=== PATIENT | female | born 1940 | race Caucasian/White ===

== ENCOUNTER 2023-04-29 07:09 | Inpatient (IN) ==
--- NOTE | 2023-04-22 15:51 | Anesthesiology Consultation ---
Date of Service April 22, 2023 Assessment & Plan (1) Encounter for pre-operative examination: - Infectious disease screening: Per assessment on 04/21/23: No known infectious disease contacts or current infectious disease symptoms. No noted Covid positive test result in past 90 days. - Cardiology note (04/08/23): "Scheduled for L4 and L5 decompression infusion [sic]. We will await repeat echo prior to clearance due to mildly reduced EF on stress testing." Subsequent echo performed 04/13/2023 with improved EF of 60- 65%. Her follow-up cardiology note (04/13/23): ' I have personally interpreted the result note of your echo.. Normal measurements of the aorta.. Strong heart muscle.. Normal heart chamber measurements.. No significant heart valve issues" - PCP visit (04/15/23): "preoperative testing reviewed including EKG and labs. She is for upcoming lumbar fusion.. There were no major concerns from the lab/EKG perspective.. She has had full cardiac work-up in the last year as well including recent echo which was reassuring.. By Vo criteria she should be considered moderate risk for lumbar spine surgery with 1-5% risk of perioperative ASCE/MACE" Chart Review Chart Review: Acceptable Risk for Surgery and Patient NOT seen in Pre Admission Testing History Surgery Operation Date: 04/29/23 09:05 Proposed Procedures p L4-S1 Decompression and Fusion - Sebastian Henley DO Height/Weight Height: 5 ft 2 in Weight: 72.575 kg Allergies Allergy/AdvReac Type Severity Reaction Status Date / Time aspirin Allergy "all over Verified 04/21/23 07:30 aching in the intestinal tract" NSAIDS (Non-Steroidal Allergy "all over Verified 04/21/23 07:30 Anti-Inflamma aching in the intestinal tract" empagliflozin AdvReac Yeast Verified 04/22/23 15:50 [From Jardiance] infections (per records) Medications Home Medications Medication Instructions Recorded Confirmed Last Taken lxuiyhgttw-kanvftksjqvhp-vlkrwadd 1 tab PO Q4H PRN migraines 04/21/23 04/21/23 Unknown 50 mg-325 mg-40 mg tablet ezetimibe 10 mg tablet 10 mg PO QAM 04/21/23 04/21/23 Unknown furosemide 40 mg tablet 40 mg PO QAM 04/21/23 04/21/23 Unknown metoprolol succinate 50 mg 50 mg PO QAM 04/21/23 04/21/23 Unknown tablet,extended release 24 hr pantoprazole 40 mg tablet,delayed 40 mg PO QAM 04/21/23 04/21/23 Unknown release potassium chloride 20 mEq 20 meq PO QAM 04/21/23 04/21/23 Unknown tablet,extended release prednisone 2 mg tablet,delayed 4 mg PO QAM PMR 04/21/23 04/21/23 Unknown release sumatriptan succinate 50 mg tablet 25 mg PO UD PRN migraines 04/21/23 04/21/23 Unknown (Imitrex) valsartan 40 mg tablet 40 mg PO BID 04/21/23 04/21/23 Unknown Past Medical History Medical History GERD (gastroesophageal reflux disease) History of asthma History of recent fall 04/09/23 (mechanical fall after losing balance)- No head trauma or loss of consciousness. Residual bruising related to this improving (left knee region). Subsequent cardio + PCP clearances obtained- PCP monitoring residual knee pain felt to be ligament injury per patient Currently using a walker "due to being stiff and sore" Hx of congestive heart failure Follows with Dr. Bettencourt Hx of migraines Hyperlipidemia Hypertension PMR (polymyalgia rheumatica) Schatzki's ring of distal esophagus Past Surgical History Surgical History History of bladder surgery tacking x2 History of esophagogastroduodenoscopy (EGD) Hx of cardiac cath 4+ years ago ([facility])- no stents Hx of colonoscopy Hx of sinus surgery x2 Hx of total hysterectomy with removal of both tubes and ovaries Slow to wake up after anesthesia Social History Smoking Status: Former smoker Do You Dip or Chew Tobacco: No Smoking End Date: years ago as a teenager until age 42, only 1-2/day Hx Alcohol Use: No Hx Substance Use: No substance use type: does not use Lab Results Anesthesia Preop Results Results Anesthesia Widget: WBC 8.32 K/ul (4.8-10.8) 04/01/23 Hgb 13.3 g/dl (12.0-16.0) 04/01/23 Hct 40.4 % (37.0-47.0) 04/01/23 Plt 310 K/uL (130-400) 04/01/23 Na 138 mmol/L (136-145) 04/01/23 K 4.2 mmol/L (3.5-5.1) 04/01/23 Cl 102 mmol/L (98-107) 04/01/23 CO2 28 mmol/L (21-32) 04/01/23 BUN 24 mg/dl (6-23) H 04/01/23 Creat 1.25 mg/dl (0.6-1.2) H 04/01/23 Glucose Level 108 mg/dl (70-99(Fasting)) H 04/01/23 PT 10.2 Seconds (9.0-12.0) 04/01/23 PTT 26.4 Seconds (21.0-31.0) 04/01/23 INR 0.9 (0.9-1.1) 04/01/23 Urine Color Yellow 04/01/23 Urine Appearance Clear (Clear) 04/01/23 Urine pH 5.0 (4.5-7.5) 04/01/23 Urine Specific [place] 1.035 (1.000-1.030) H 04/01/23 Urine Protein Trace (Negative) H 04/01/23 Urine Glucose (UA) Negative (Negative) 04/01/23 Urine Ketones Negative (Negative) 04/01/23 Urine Blood Negative (Negative) 04/01/23 Urine Nitrite Positive (Negative) A 04/01/23 Urine Bilirubin Negative (Negative) 04/01/23 Urine Urobilinogen Negative (Negative) 04/01/23 Urine Leukocyte Esterase Trace (Negative) H 04/01/23 Urine WBC (Auto) 10-30 /hpf (0-5) H 04/01/23 Urine RBC (Auto) 0-4 /hpf (0-4) 04/01/23 Urine Hyaline Casts (Auto) 1-5 /lpf (0-5) 04/01/23 Urine Epithelial Cells (Auto) >30 /lpf (0-5) H 04/01/23 Urine Bacteria (Auto) 4+ (Negative) H 04/01/23 Blood Type A Positive 04/01/23 Antibody Screen NEGATIVE 04/01/23 Testing Laboratory Results Urine culture (04/01/23)- e.coli (surgeon ordered preop testing) Electrocardiogram Date: 04/01/23 NSR at 78bpm. LAD. Minimal voltage criteria for LVH, may be normal variant. PRWP, consider anterior MS vs lead placement vs LVH. NS TWA. Echo performed 04/13/23* Chest X-Ray Date: 04/01/23 FINDINGS: Lung volumes are normal. Lungs are clear. There is no pneumothorax or pleural effusion. There is mild cardiomegaly. Mediastinal contours are normal. There is no evidence for pulmonary edema. IMPRESSION: No acute cardiopulmonary findings. Mild cardiomegaly. Echocardiogram Date: 04/13/23 LVEF 60-65%. Thickened aortic valve with mild AR. Thickened mitral valve with mild MR. Grade 1 diastolic dysfunction. Stress Test Date: 10/28/22 Type: nuclear No significant ischemia or infarction. Left ventricular systolic dysfunction noted with rest EF 42%, post-rest EF 40%. Mildly dilated LV cavity. Cardiac Catheterization Date: 05/01/20 Mild to moderate mid LAD artery stenosis. Normal LV systolic function. Recommendations: Medical therapy and aggressive risk factor modification.
[~2023-04-29 07:09] MED LIST: ACETAMINOPHEN 500 MG TAB PO SCH; CeleBREX 200 MG CAP PO SCH; GABAPENTIN 300 MG CAP PO SCH; LR 15ML/HR IV SCH; LR 60ML/HR IV SCH; ceFAZolin 2000MG 2,000 MG/15 ML SYR IV SCH
[2023-04-29] MEDS ORDERED: DEXAMETHASONE SOD INJ 4 MG/ML VIAL ONE (08:13)
[2023-04-29] MEDS ORDERED: fentaNYL citrate PF 100 MCG/2 ML VIAL ONE ×2 (08:13→10:01)
[2023-04-29] MEDS ORDERED: ROCURONIUM BROMIDE 10 MG/ML 5 ML VIAL IV ONE (08:13)
[2023-04-29] MEDS ORDERED: LIDOCAINE 2% 2 ML VIAL/AMP(20MG/ML) INFIL ONE (08:13)
[2023-04-29] MEDS ORDERED: PROPOFOL IV EMULSION 10 MG/ML 20 ML VIAL IV ONE (08:13)
[2023-04-29] MEDS ORDERED: ONDANSETRON INJ 2 MG/ML 2 ML VIAL ONE (08:13)
[2023-04-29] MEDS ORDERED: SUGAMMADEX SODIUM 200 MG/2 ML VIAL IV ONE (08:14)
--- NOTE | 2023-04-29 09:00 | History & Physical Bridge Note ---
Date of Service April 29, 2023 History & Physical Bridge Note I have examined the patient, reviewed the History & Physical and in the interval since the performance of the History & Physical I have noted the following changes of clinical significance: no changes noted
[2023-04-29] MEDS ORDERED: ONDANSETRON INJ 2 MG/ML 2 ML VIAL IV PRN ×2 (09:01→14:57)
[2023-04-29] MEDS ORDERED: ePHEDrine sulfate 50 MG/ML AMP IV PRN (09:01)
[2023-04-29] MEDS ORDERED: ATROPINE SULFATE 0.1 MG/ML 10ML SYR IV PRN (09:01)
--- NOTE | 2023-04-29 09:01 | History & Physical Report ---
Date of Service April 29, 2023 Assessment & Plan (1) Neurogenic claudication due to lumbar spinal stenosis: Plan: L4-S1 decompression and fusion History of Present Illness Chief Complaint: Back and leg pain Primary Care Provider: Yamil Griffin This is an 83-year-old female who presents with chronic persistent back and leg pain and failing since course of nonoperative care she is here for surgical invention. Allergies Allergy/AdvReac Type Severity Reaction Status Date / Time aspirin Allergy "all over Verified 04/29/23 07:38 aching in the intestinal tract" NSAIDS (Non-Steroidal Allergy "all over Verified 04/29/23 07:38 Anti-Inflamma aching in the intestinal tract" empagliflozin AdvReac Yeast Verified 04/29/23 07:38 [From Jardiance] infections (per records) Home Medications Medication Instructions Recorded Confirmed Type bsayilibrd-rxhhapnxhrhsj-ccsysezj 1 tab PO Q4H PRN migraines 04/21/23 04/29/23 History 50 mg-325 mg-40 mg tablet ezetimibe 10 mg tablet 10 mg PO QAM 04/21/23 04/29/23 History furosemide 40 mg tablet 40 mg PO QAM 04/21/23 04/29/23 History metoprolol succinate 50 mg 50 mg PO QAM 04/21/23 04/29/23 History tablet,extended release 24 hr pantoprazole 40 mg tablet,delayed 40 mg PO QAM 04/21/23 04/29/23 History release potassium chloride 20 mEq 20 meq PO QAM 04/21/23 04/29/23 History tablet,extended release prednisone 2 mg tablet,delayed 4 mg PO QAM PMR 04/21/23 04/29/23 History release sumatriptan succinate 50 mg tablet 25 mg PO UD PRN migraines 04/21/23 04/29/23 History (Imitrex) valsartan 40 mg tablet 40 mg PO BID 04/21/23 04/29/23 History Past Med/Surg History Medical History GERD (gastroesophageal reflux disease) History of asthma History of recent fall 04/09/23 (mechanical fall after losing balance)- No head trauma or loss of consciousness. Residual bruising related to this improving (left knee region). Subsequent cardio + PCP clearances obtained- PCP monitoring residual knee pain felt to be ligament injury per patient Currently using a walker "due to being stiff and sore" Hx of congestive heart failure Follows with Dr. Bettencourt Hx of migraines Hyperlipidemia Hypertension PMR (polymyalgia rheumatica) Schatzki's ring of distal esophagus Surgical History History of bladder surgery tacking x2 History of esophagogastroduodenoscopy (EGD) Hx of cardiac cath 4+ years ago ([facility])- no stents Hx of colonoscopy Hx of sinus surgery x2 Hx of total hysterectomy with removal of both tubes and ovaries Slow to wake up after anesthesia Social History Smoking Status: Former smoker Smoking End Date: years ago as a teenager until age 42, only 1-2/day; Second Hand Exposure: Yes (hx); Do You Dip or Chew Tobacco: No; Tobacco Cessation Education Requested by Patient: No Hx Alcohol Use: No Hx Substance Use: No Preferred Language: Italian Communication Ability: Effective Clinic Business Manager Required: No Beliefs That Will Affect Care: None Current Living Situation: Alone Other Information That Helps Us Care for You: No Feels Safe at Home: Yes Safety Concerns: Feels Safe At This Time Assistive Devices: Glasses, Hearing Aid - Bilateral and Walker Assistive Devices Comment: reading glasses prn Physical Exam Physical Exam: Patient is alert and oriented Heart rhythm Lungs clear Results & Data Results & Data Vital Signs (Past 12 Hours) Vital Signs Temp Pulse Resp BP Pulse Ox O2 Del Method 04/29/23 08:05 36.7 C 79 18 139/79 94 Room Air
[2023-04-29] MEDS ORDERED: BUPIVACAINE/EPINEPHRINE 0.25% 1:200,000 30 ML VIAL ONE (09:09)
[2023-04-29] MEDS ORDERED: ceFAZolin 330 MG/ML 1 GM VIAL ONE (09:09)
[2023-04-29] MEDS ORDERED: FLOSEAL HEMOSTATIC MATRIX 10ML TOP ONE (10:16)
--- NOTE | 2023-04-29 11:33 | Operative Report ---
Post Operative Report Pre & Post Diagnosis Operation Date: 04/29/23 09:05 Pre-Op Diagnosis: Neurogenic claudication due to lumbar spinal stenosis Spondylolisthesis L4-L5 Post-Op Diagnosis: Same I identified the patient and participated in the time-out.: Yes Procedure Operation Date: 04/29/23 09:05 Actual Procedures #1 lumbar decompression bilaterally facetectomies and foraminotomies L3-L4 L4-5 L5-S1. #2 posterior spinal fusion L4-5 L5-S1. #3 placement posterior instrumentation L4-S1. #4 interbody fusion L4-5 L5-S1. #5 placement of Spira 12 x 26 mm at L4-5 and 12 x 26 mm x 2 at L5-S1. #6 placement locally harvested morselized autograft and posterior gutters. #7 placement of I factor interbody space and infuse collagen sponge in the posterior lateral gutters. Surgeon Sebastian Henley DO Appliance Worker Kimberly Villalba Estimated Blood Loss 100 Findings Consistent with Post-Op Diagnosis Specimens None Indications This is an 83-year-old female who presents above-mentioned diagnosis after failed course of nonoperative care she is here for surgical invention. Description of Procedure Patient met with identified informed consent obtained. Patient was then taken to the operative suite underwent ablation placed in a prone position on the Saran table on top of the Babak frame. All bony promises well-padded eyes inspected to ensure no external precipice spinal. This point the lumbar spine was prepped and draped no sterile fashion. Sharp dissection with the assistance of Bovie cautery form down to and exposing the lamina and transverse processes of L for L5 and the sacral ala bilaterally. From caudal to cephalad fashion complete and active L4-5 L4 partial laminectomy of L3 was performed including bilaterally facetectomies and foraminotomies addressing severe spinal stenosis. Pedicle screw was then placed in L4-L5 and S1 levels bilaterally with assistance of fluoroscopy and the properly sized jh placed. By way of transforaminal approach and left discectomy of L5-S1 was performed endplates guarded to subcortical bleeding bone and a 12 x 26 mm Spira cage with I factor tapped in position. Then proceeded to the right transforaminal region completed discectomy curetted the endplates to subcortical mean bone and placed a second 12 x 26 mm Spira cage into the disc space. I then proceeded to L4-L5 and again by way of transfer approach left complete discectomy performed endplates guarded to subcortical and bone and a 12 x 22 mm Spira cage with I factor tapped in position. The rods were then compressed locked in final position bilaterally. The transverse processes of L4-5 and sacral ala burred to subcortical bone. Infuse collagen sponge and locally harvested morselized autograft placed in posterior gutters. 10 round of drain inserted. Incision was then closed with 1 Vicryl and fascia 2-0 Vicryl subcutaneously and 4 Monocryl for final skin closure. Steri-Strips sterile dressings placed. Patient waken taken to PACU stable condition. Please note spinal cord monitoring was utilized at the procedure no changes noted. Lastly Kimberly Villalba is present at the entire surgeon while the patient positioning complex course of the surgery and final skin closure. I attest to the content of the Intraoperative Record and any orders documented therein. Any exceptions are noted below.
[2023-04-29] MEDS: fentaNYL citrate PF 100 MCG/2 ML VIAL IV PRN ×4 (11:50→12:05)
--- NOTE | 2023-04-29 13:53 | Anesthesiology Progress Note ---
Date of Service April 29, 2023 Anesthesia Post Procedure Vital Signs Vital Signs: Temp Pulse Pulse Resp BP Pulse Ox O2 Del Method 04/29/23 13:45 75 19 123/69 96 Nasal Cannula 04/29/23 13:15 72 16 146/71 H 94 Nasal Cannula 04/29/23 13:30 76 12 130/74 96 Nasal Cannula 04/29/23 13:00 75 14 148/70 H 95 Nasal Cannula 04/29/23 12:50 75 12 151/74 H 96 Nasal Cannula 04/29/23 12:40 76 22 141/58 H 96 Nasal Cannula 04/29/23 12:30 70 16 140/63 95 Nasal Cannula 04/29/23 12:20 97.5 F L 76 16 134/78 96 Nasal Cannula 04/29/23 12:10 78 14 143/88 H 92 Room Air 04/29/23 12:00 74 17 157/77 H 96 Oxymask 04/29/23 11:50 72 20 160/80 H 99 Oxymask 04/29/23 11:43 97.2 F L 78 16 160/66 H 99 Oxymask 04/29/23 08:05 98.1 F 79 18 139/79 94 Room Air O2 Flow Rate 04/29/23 13:45 3 04/29/23 13:15 3 04/29/23 13:30 3 04/29/23 13:00 3 04/29/23 12:50 3 04/29/23 12:40 3 04/29/23 12:30 3 04/29/23 12:20 3 04/29/23 12:10 04/29/23 12:00 4 04/29/23 11:50 6 04/29/23 11:43 6 04/29/23 08:05 Pain Intensity Back: Pain Intensity: 3 Transfer of Care Handoff Completed per policy Notes Mental Status: alert / awake / arousable and participated in evaluation Patient Amnestic to Procedure: Yes Nausea / Vomiting: adequately controlled Pain: adequately controlled Airway Patency, RR, SpO2: stable & adequate BP & HR: stable & adequate Hydration State: stable & adequate Anesthetic Complications: no major complications apparent and Pt Satisfied with anesthetic care
--- NOTE | 2023-04-29 14:17 | Fluoroscopy Report ---
FL lumbar spine 2-3V CLINICAL HISTORY: L4-S1 DECOMP AND FUSION COMPARISON STUDY: None. FLUOROSCOPY TIME: 25 seconds. Ka, r: 23.07 mGy FLUOROSCOPIC IMAGES: 2 FINDINGS: Fluoroscopy was provided during L4-L5 and L5-S1 discectomies. Posterior decompression is no wanda with bilateral pedicle screws at the L4, L5 and S1 levels. Hardware is intact. There are intercon necting rods. IMPRESSION: Fluoroscopy provided during L4-S1 posterior decompression, fusion and discectomy. ACT 112: Negative or not required by law. Electronically signed by: Marques Mart M.D. 04/29/2023 2:15 PM
[2023-04-29] MEDS ORDERED: METOCLOPRAMIDE HCL INJ 5 MG/ML 2 ML VIAL IV PRN (14:57)
[2023-04-29] MEDS ORDERED: DO NOT ADMINISTER FLU VACCINE PRN (14:57)
[2023-04-29] MEDS ORDERED: LORazepam 0.5 MG TAB PO PRN (14:57)
[2023-04-29] MEDS ORDERED: ALUMINUM/MAGNESIUM SUSP 30 ML UDC PO PRN (14:57)
[2023-04-29] MEDS ORDERED: DO NOT ADMINISTER PNEUMOCOCCAL VACCINE PRN (14:57)
[2023-04-29] MEDS ORDERED: BUTALBITAL/ACETAMIN/CAFFEINE TAB PO PRN (14:57)
[2023-04-29] MEDS ORDERED: SOD PHOSPHATE/SOD BIPHOSPHATE ENEMA 132 ML BTL PR PRN (14:57)
[2023-04-29] MEDS ORDERED: ONDANSETRON 4 MG OD TAB PO PRN (14:57)
[2023-04-29] MEDS ORDERED: PROMETHAZINE HCL 12.5 MG in SODIUM CHLORIDE 0.9% 50 ML IV PRN (14:57)
[2023-04-29] MEDS ORDERED: diphenhydrAMINE Capsule 25 MG CAP PO PRN (14:57)
[2023-04-29] MEDS ORDERED: LORazepam 2 MG/1 ML VIAL IV PRN (14:57)
[2023-04-29] MEDS ORDERED: bisacodyL 10 MG SUPP PR PRN (14:57)
[2023-04-29] MEDS ORDERED: hydrOXYzine HCl 25 MG TAB PO PRN (14:57)
[2023-04-29] MEDS ORDERED: NALOXONE HCL 0.4 MG/1 ML VIAL/CARP IV PRN (14:57)
[2023-04-29] MEDS ORDERED: SUMAtriptan succinate 25 MG TAB PO PRN (14:57)
[2023-04-29] MEDS ORDERED: HYDROmorphone INJ 0.5 MG/0.5 ML SYR IV PRN (14:57)
[2023-04-29] MEDS ORDERED: MAGNESIUM HYDROXIDE SUSP 30 ML UDC PO PRN (14:57)
[2023-04-29] MEDS ORDERED: HYDROmorphone INJ 1 MG/ML SYRINGE IV PRN (14:57)
[2023-04-29] MEDS ORDERED: FAMOTIDINE 20 MG TAB PO PRN (14:57)
[2023-04-29] MEDS ORDERED: ACETAMINOPHEN 1,000 MG/100 ML VIAL IV PRN (14:57)
[2023-04-29] MEDS: LACTATED RINGER'S 1,000 ML IV SCH ×2 (15:30→22:47)
--- NOTE | 2023-04-29 16:11 | Hospitalist Consultation ---
Date of Consultation April 29, 2023 Assessment & Plan (1) Neurogenic claudication due to lumbar spinal stenosis: S/p L4-S1 Decompression and Fusion, Spinal Cord Monitoring today Pain control Defer Activity to Primary Surgeon PT/OT Plan to remove harmon by tomorrow Check CBC and BMP in the morning (2) CHF (congestive heart failure): (3) Hypertension: Daughter reported that she had hypotension with her antihypertensives and opioids in the past after surgery BP was elevated earlier but has been normal since Nursing communication order to check BP prior to giving any antihypertensives Otherwise continue home valsartan, metoprolol Resume home lasix and potassium tomorrow Updated daughters who were at bedside I spent a total of 55 minutes coordinating, documenting and providing care for this patient excluding time spent in performance of separately billed services History of Present Illness Reason for Consultation: Post op medical management Requesting Physician: Sebastian Henley DO Attending Physician: Sebastian Henley DO History of Present Illness 83-year-old woman with history of hypertension, congestive heart disease who had lung postsacral decompression and fusion surgery today. Patient has been having neurogenic stenosis with lumbar radiculopathy for some years, worsened over the past 2 years. Reports pain radiating to the legs, usually alternates between left and right and weakness in legs Reports ambulatory dysfunction due to this. Had a fall in the past few weeks Had L4-S1 Decompression and Fusion, Spinal Cord Monitoring by Dr Henley this morning Currently reports feeling a bit 'loopy' after getting some pain med. Otherwise, she denied any other complaints. Denied smoking, drinking or use of illicit drugs Father had a cardiac event in his 70s Allergies Allergy/AdvReac Type Severity Reaction Status Date / Time aspirin Allergy "all over Verified 04/29/23 07:38 aching in the intestinal tract" NSAIDS (Non-Steroidal Allergy "all over Verified 04/29/23 07:38 Anti-Inflamma aching in the intestinal tract" empagliflozin AdvReac Yeast Verified 04/29/23 07:38 [From Jardiance] infections (per records) Home Medications Medication Instructions Recorded Confirmed Type gfysgolomf-gkwrmnguedpzk-tkxzobrg 1 tab PO Q4H PRN migraines 04/21/23 04/29/23 History 50 mg-325 mg-40 mg tablet ezetimibe 10 mg tablet 10 mg PO QAM 04/21/23 04/29/23 History furosemide 40 mg tablet 40 mg PO QAM 04/21/23 04/29/23 History metoprolol succinate 50 mg 50 mg PO QAM 04/21/23 04/29/23 History tablet,extended release 24 hr pantoprazole 40 mg tablet,delayed 40 mg PO QAM 04/21/23 04/29/23 History release potassium chloride 20 mEq 20 meq PO QAM 04/21/23 04/29/23 History tablet,extended release prednisone 2 mg tablet,delayed 4 mg PO QAM PMR 04/21/23 04/29/23 History release sumatriptan succinate 50 mg tablet 25 mg PO UD PRN migraines 04/21/23 04/29/23 History (Imitrex) valsartan 40 mg tablet 40 mg PO BID 04/21/23 04/29/23 History Patient History Medical History (Updated 04/29/23 @ 16:18 by Kassandra Rodgers MD) GERD (gastroesophageal reflux disease) History of asthma History of recent fall 04/09/23 (mechanical fall after losing balance)- No head trauma or loss of consciousness. Residual bruising related to this improving (left knee region). Subsequent cardio + PCP clearances obtained- PCP monitoring residual knee pain felt to be ligament injury per patient Currently using a walker "due to being stiff and sore" Hx of congestive heart failure Follows with Dr. Bettencourt Hx of migraines Hyperlipidemia Hypertension PMR (polymyalgia rheumatica) Schatzki's ring of distal esophagus Surgical History History of bladder surgery tacking x2 History of esophagogastroduodenoscopy (EGD) Hx of cardiac cath 4+ years ago ([facility] no stents Hx of colonoscopy Hx of sinus surgery x2 Hx of total hysterectomy with removal of both tubes and ovaries Slow to wake up after anesthesia Social History Smoking Status: Former smoker Smoking End Date: years ago as a teenager until age 42, only 1-2/day; Second Hand Exposure: Yes (hx); Do You Dip or Chew Tobacco: No; Tobacco Cessation Education Requested by Patient: No Hx Alcohol Use: No Hx Substance Use: No Preferred Language: [place] African Communication Ability: Effective Sewing Machinist Required: No Beliefs That Will Affect Care: None Current Living Situation: Alone Other Information That Helps Us Care for You: No Feels Safe at Home: Yes Safety Concerns: Feels Safe At This Time Assistive Devices: Glasses, Hearing Aid - Bilateral and Walker Assistive Devices Comment: reading glasses prn Review of Systems Review of Systems: All systems reviewed & are unremarkable except as noted in HPI & below Physical Exam Constitutional: + well hydrated; no acute distress Eyes: PERRL, conjunctivae normal, anicteric sclerae ENMT: external ear and nose normal, oropharynx normal Respiratory: normal respiratory effort, lungs clear to auscultation Cardiovascular: Rate/Rhythm: regular rate and regular rhythm S1 S2 Gastrointestinal (Abdomen): normal bowel sounds, soft, nontender, no hepatosplenomegaly Musculoskeletal: No pedal edema Drain in situ in surgical site Neurologic: PERRL, EOMI, accommodation nl, no face palsy, no dysarthria Psychiatric: A+Ox3, euthymic affect Genitourinary: Harmon in situ Results & Data Results & Data Vital Signs (Past 12 Hours) Vital Signs Temp Pulse Pulse Resp BP BP Pulse Ox 04/29/23 15:30 36.9 C 72 18 129/82 98 04/29/23 15:00 36.7 C 76 20 130/70 94 04/29/23 14:30 77 16 126/69 97 04/29/23 14:00 76 18 133/63 95 04/29/23 13:45 75 19 123/69 96 04/29/23 13:15 72 16 146/71 H 94 04/29/23 13:30 76 12 130/74 96 04/29/23 13:00 75 14 148/70 H 95 04/29/23 12:50 75 12 151/74 H 96 04/29/23 12:40 76 22 141/58 H 96 04/29/23 12:30 70 16 140/63 95 04/29/23 12:20 36.4 C L 76 16 134/78 96 04/29/23 12:10 78 14 143/88 H 92 04/29/23 12:00 74 17 157/77 H 96 04/29/23 11:50 72 20 160/80 H 99 04/29/23 11:43 36.2 C L 78 16 160/66 H 99 04/29/23 08:05 36.7 C 79 18 139/79 94 O2 Del Method O2 Flow Rate 04/29/23 15:30 Nasal Cannula 2 04/29/23 15:00 Nasal Cannula 2 04/29/23 14:30 Nasal Cannula 3 04/29/23 14:00 Nasal Cannula 3 04/29/23 13:45 Nasal Cannula 3 04/29/23 13:15 Nasal Cannula 3 04/29/23 13:30 Nasal Cannula 3 04/29/23 13:00 Nasal Cannula 3 04/29/23 12:50 Nasal Cannula 3 04/29/23 12:40 Nasal Cannula 3 04/29/23 12:30 Nasal Cannula 3 04/29/23 12:20 Nasal Cannula 3 04/29/23 12:10 Room Air 04/29/23 12:00 Oxymask 4 04/29/23 11:50 Oxymask 6 04/29/23 11:43 Oxymask 6 04/29/23 08:05 Room Air Laboratory Results Abnormal lab results 04/29/23 Range/Units 07:27 Crossmatch See Detail
[2023-04-29] MEDS: ceFAZolin 2000MG 2,000 MG/15 ML SYR IV SCH (17:00)
[2023-04-29] MEDS: DOCUSATE SODIUM/SENNA 50/8.6MG TAB PO SCH (20:22)
[2023-04-29] MEDS: VALSARTAN 80 MG TAB PO SCH (20:23)
[2023-04-30] MEDS: ceFAZolin 2000MG 2,000 MG/15 ML SYR IV SCH (01:34)
[2023-04-30] MEDS: ACETAMINOPHEN 500 MG TAB PO PRN (02:44)
[2023-04-30] MEDS: POLYETHYLENE (MIRALAX) 17 GM PACK PO SCH ×3 (05:59→17:19)
[2023-04-30] MEDS: traMADol HCL 50 MG TABLET PO PRN ×3 (06:27→20:55)
[2023-04-30 06:58] LABS: Basophils # (auto) 0.02 K/uL (0.00-0.20); Basophils % (auto) 0.2 %; Hematocrit (blood only) 32.1 % (37.0-47.0); Hemoglobin 10.7 g/dl (12.0-16.0); Immature Granulocytes # (auto) 0.06 K/uL (0.01-0.20); Immature Granulocytes % (auto) 0.5 %; Lymphocytes # (auto) 0.68 K/uL (1.20-3.40); Lymphocytes % (auto) 5.2 %; Mean Corpuscular Hemoglobin 30.6 pg (25.0-34.0); Mean Corpuscular Hgb Conc 33.3 g/dL (32.0-36.0); Mean Corpuscular Volume 91.7 fL (80.0-100.0); Mean Platelet Volume 9.3 fL (9.4-12.4); Monocytes # (auto) 1.27 K/uL (0.11-0.59); Monocytes % (auto) 9.7 %; Neutrophils # (auto) 11.02 K/uL (1.40-6.50); Neutrophils % (auto) 84.4 %; Platelet Count 301 K/uL (130-400); RDW Coefficient of Variation 14.6 % (11.5-14.5); RDW Standard Deviation 49.5 fL (36.4-46.3); White Blood Count 13.05 K/ul (4.8-10.8)
[2023-04-30 07:18] LABS: BUN Creatinine Ratio 25.3 (10-20); Calcium 8.8 mg/dl (8.6-10.3); Creatinine Clr Calc Pharmacy 43.3 ml/min; Est GFR (African American) 65.1 ml/min; Est GFR (Non-African American) 56.2 ml/min; Potassium 4.5 mmol/L (3.5-5.1)
[2023-04-30] MEDS: PANTOprazole 40 MG TAB PO SCH (07:44)
[2023-04-30] MEDS: VALSARTAN 80 MG TAB PO SCH ×2 (07:44→20:56)
[2023-04-30] MEDS: EZETIMIBE 10 MG TAB PO SCH (07:44)
[2023-04-30] MEDS: dexAMETHasone 6 MG in SYRINGE 0 ML IV SCH (07:44)
[2023-04-30] MEDS: FUROSEMIDE 40 MG TAB PO SCH (07:52)
[2023-04-30] MEDS: METOPROLOL SUCC 50MG EXT REL TAB PO SCH (07:52)
[2023-04-30] MEDS: POTASSIUM CHLORIDE CRTAB 20 MEQ TABCR PO SCH (07:52)
--- NOTE | 2023-04-30 12:51 | Orthopedic Progress Note ---
Date of Service April 30, 2023 Assessment & Plan (1) Neurogenic claudication due to lumbar spinal stenosis: Plan: At this time we will continue physical therapy monitor YUVAL output hopefully discharge home later this weekend. Admission and Anticipated Discharge Date Admission Date: April 29, 2023 Subjective Back pain controlled leg pain improved Physical Exam Physical Exam: Patient is in bed. She is comfortable. Is constricted testing. Results & Data Vital Signs (Past 12 Hours) Vital Signs Temp Pulse Resp BP BP Pulse Ox O2 Del Method 04/30/23 11:00 65 18 118/72 04/30/23 07:20 Room Air 04/30/23 10:20 76 20 97/60 L 04/30/23 07:50 65 20 132/64 91 Room Air 04/30/23 06:33 36.8 C 78 16 132/65 96 Room Air 04/30/23 02:43 36.7 C 78 16 130/80 97 Room Air
--- NOTE | 2023-04-30 13:37 | Hospitalist Progress Note ---
Date of Service April 30, 2023 Assessment & Plan (1) Neurogenic claudication due to lumbar spinal stenosis: Plan: POD#1 s/p L4-S1 Decompression and Fusion, Spinal Cord Monitoring Per ortho for pain control, wound care, anticoagulation and activities Nicole to be removed today Post-op blood loss anemia Hg 10.7 (from pre-op 13.3) in setting of post-op blood loss, dilutional factors Asymptomatic during exam Continue to monitor CBC daily (2) CHF (congestive heart failure): Plan: Euvolemic. Continue home diuretics, potassium. IV fluids discontinued, low sodium diet (3) Hypertension: Plan: Chronic; stable. BP 118/72. Continue valsartan, metoprolol with hold parameters Thank you for this consultation. We will follow the patient with you during their hospital stay. You can reach a member of the [facility] Hospitalist Team 26/01 via [employer]. Admission and Anticipated Discharge Date Admission Date: April 29, 2023 Supervising Physician Co-Signing Physician Notes Attending addendum: The patient was seen and examined in medical floor She is a status post L4-S1 decompression and fusion Has been doing better Pain is minimal and has been getting PT and OT evaluation Denies any other significant symptoms On examination Sitting on a chair without any acute distress Hemodynamically stable Chest-clear to auscultate bilaterally Heart-S1, [id number] Abdomen-benign Extremities-trace edema bilaterally Her labs, medications and imaging studies reviewed Status post L4-S1 decompression fusion Remains medically stable Agree with assessment and plan as outlined above by MICHAEL Hull Dr Subjective Seen and examined in 310 in follow-up after back surgery. Patient is comfortable with minimal surgical site discomfort. Denies any pain or paresthesias in bilateral lower extremities. Had an episode this morning where she felt lightheaded and was noted to have BP of 92/70 following prolonged period of standing in front of the mirror in the bathroom. Discussed caution with position changes and postoperative setting as well as resting as needed after ambulation. Denies any issues with diet. No fever, chills, headache, chest pain, shortness of breath, nausea, vomiting, abdominal pain, dysuria. Endorsing postop flatus, no bowel movement. Review of Systems Review of Systems: At least ten systems reviewed and negative except as noted in the HPI. Physical Exam Physical Exam: Gen: WD/WN, NAD, sitting in bedside chair, A&Ox3 HEENT: Normocephalic, atraumatic, conjunctivae moist, sclerae anicteric, mucous membranes moist Lung: Clear to Auscultation bilaterally, no wheezes/rales/rhonchi Heart: Regular rate, regular rhythm, no murmurs, rubs, or gallops Abdomen: Soft, NT, ND +BS x 4 : + Nicole visualized Extremities: +Spinal dressing c/d/i, YUVAL with serosanguineous output. No edema Skin: Warm, no rash Results & Data Results & Data Vital Signs (Past 12 Hours) Vital Signs Temp Pulse Resp BP BP Pulse Ox O2 Del Method 04/30/23 11:00 65 18 118/72 04/30/23 07:20 Room Air 04/30/23 10:20 76 20 97/60 L 04/30/23 07:50 65 20 132/64 91 Room Air 04/30/23 06:33 36.8 C 78 16 132/65 96 Room Air 04/30/23 02:43 36.7 C 78 16 130/80 97 Room Air Laboratory Results Short CBC 04/30/23 Range/Units 06:09 WBC 13.05 H (4.8-10.8) K/ul Hgb 10.7 L (12.0-16.0) g/dl Hct 32.1 L (37.0-47.0) % Plt Count 301 (130-400) K/uL BMP 04/30/23 06:09 Sodium 141 Potassium 4.5 Chloride 106 Carbon Dioxide 27 BUN 24 H Creatinine 0.95 Glucose 106 H Calcium 8.8 Diagnostic Findings Lumbar Spine X-Ray 04/29/23 00:00 FL lumbar spine 2-3V CLINICAL HISTORY: L4-S1 DECOMP AND FUSION COMPARISON STUDY: None. FLUOROSCOPY TIME: 25 seconds. Ka, r: 23.07 mGy FLUOROSCOPIC IMAGES: 2 FINDINGS: Fluoroscopy was provided during L4-L5 and L5-S1 discectomies. Posterior decompression is noted with bilateral pedicle screws at the L4, L5 and S1 levels. Hardware is intact. There are interconnecting rods. IMPRESSION: Fluoroscopy provided during L4-S1 posterior decompression, fusion and discectomy. ACT 112: Negative or not required by law. Electronically signed by: Marques Mart M.D. 04/29/2023 2:15 PM
[2023-04-30] MEDS: predniSONE 1 MG TAB PO SCH (13:55)
[2023-04-30] MEDS: LACTATED RINGER'S 1,000 ML IV SCH (19:29)
[2023-04-30] MEDS: DOCUSATE SODIUM/SENNA 50/8.6MG TAB PO SCH (20:57)
[2023-05-01] MEDS: POLYETHYLENE (MIRALAX) 17 GM PACK PO SCH ×4 (00:25→18:40)
[2023-05-01] MEDS: traMADol HCL 50 MG TABLET PO PRN ×6 (02:03→20:07)
[2023-05-01] MEDS: FUROSEMIDE 40 MG TAB PO SCH (08:22)
[2023-05-01] MEDS: EZETIMIBE 10 MG TAB PO SCH (08:22)
[2023-05-01] MEDS: dexAMETHasone 6 MG in SYRINGE 0 ML IV SCH (08:22)
[2023-05-01] MEDS: METOPROLOL SUCC 50MG EXT REL TAB PO SCH (08:23)
[2023-05-01] MEDS: PANTOprazole 40 MG TAB PO SCH (08:23)
[2023-05-01] MEDS: POTASSIUM CHLORIDE CRTAB 20 MEQ TABCR PO SCH (08:23)
[2023-05-01] MEDS: predniSONE 1 MG TAB PO SCH (08:24)
[2023-05-01] MEDS: VALSARTAN 80 MG TAB PO SCH ×2 (08:24→20:08)
[2023-05-01 08:38] LABS: Hematocrit (blood only) 34.2 % (37.0-47.0); Mean Corpuscular Hemoglobin 30.2 pg (25.0-34.0); Mean Corpuscular Hgb Conc 32.2 g/dL (32.0-36.0); Mean Platelet Volume 9.4 fL (9.4-12.4); Platelet Count 305 K/uL (130-400); RDW Coefficient of Variation 14.7 % (11.5-14.5); Red Blood Count 3.64 M/uL (4.20-5.40); White Blood Count 15.15 K/ul (4.8-10.8)
[2023-05-01 08:53] LABS: BUN Creatinine Ratio 35.9 (10-20); Calcium 9.1 mg/dl (8.6-10.3); Creatinine Clr Calc Pharmacy 44.7 ml/min; Est GFR (African American) 67.7 ml/min; Est GFR (Non-African American) 58.4 ml/min; Potassium 4.7 mmol/L (3.5-5.1)
--- NOTE | 2023-05-01 12:07 | Hospitalist Progress Note ---
Date of Service May 01, 2023 Assessment & Plan (1) Neurogenic claudication due to lumbar spinal stenosis: Plan: POD#2 s/p L4-S1 Decompression and Fusion, Spinal Cord Monitoring Per ortho for pain control, wound care, anticoagulation and activities Post-op blood loss anemia Hgb stable at 11 (from 10.7 yesterday, pre-op 13.3) in setting of post-op blood loss, dilutional factors Asymptomatic during exam Continue to monitor CBC daily (2) CHF (congestive heart failure): Plan: Euvolemic. Continue home diuretics, potassium. IV fluids discontinued, low sodium diet (3) Hypertension: Plan: Chronic; stable. Continue valsartan, metoprolol Thank you for this consultation. We will follow the patient with you during their hospital stay. You can reach a member of the [facility] Hospitalist Team 26/01 via [employer]. Admission and Anticipated Discharge Date Admission Date: April 29, 2023 Supervising Physician Co-Signing Physician Notes 05/01/2023 The patient was seen and examined in medical floor She has been feeling better and the back pain is minimal Denies any other symptoms On examination Sitting on a chair without any acute distress Hemodynamically stable with blood pressure on the higher side at 168/77 Chest-clear to auscultate bilaterally Heart-S1-S2, regular Abdomen-benign Extremities-trace edema bilaterally Her labs and imaging studies reviewed. Medications reviewed She is a status post L4-S1 decompression fusion Remains stable medically Agree with assessment and plan as outlined above by MICHAEL Hull Dr Subjective Seen and examined in 310 in follow-up after back surgery. Experiencing more pain today at surgical site is currently resting in bed. Able to participate with therapy. Denies any other acute issues overnight. Tolerating diet, urinating without issue. No fever, chills, headache, chest pain, shortness of breath, nausea, vomiting, abdominal pain, dysuria. Endorsing postop flatus, no bowel movement yet. Review of Systems Review of Systems: At least ten systems reviewed and negative except as noted in the HPI. Physical Exam Physical Exam: Gen: WD/WN, NAD, sitting in bedside chair, A&Ox3 HEENT: Normocephalic, atraumatic, conjunctivae moist, sclerae anicteric, mucous membranes moist Lung: Clear to Auscultation bilaterally, no wheezes/rales/rhonchi Heart: Regular rate, regular rhythm, no murmurs, rubs, or gallops Abdomen: Soft, NT, ND +BS x 4 Extremities: +Spinal dressing c/d/i, YUVAL with serosanguineous output. No edema Skin: Warm, no rash Results & Data Results & Data Vital Signs (Past 12 Hours) Vital Signs Temp Pulse Pulse Resp BP Pulse Ox O2 Del Method 05/01/23 10:00 69 156/72 H 05/01/23 06:25 72 109/62 05/01/23 07:02 36.4 C L 67 18 113/65 95 Room Air Laboratory Results Short CBC 05/01/23 Range/Units 08:05 WBC 15.15 H (4.8-10.8) K/ul Hgb 11.0 L (12.0-16.0) g/dl Hct 34.2 L (37.0-47.0) % Plt Count 305 (130-400) K/uL BMP 05/01/23 08:05 Sodium 138 Potassium 4.7 Chloride 102 Carbon Dioxide 30 BUN 33 H Creatinine 0.92 Glucose 105 H Calcium 9.1 Diagnostic Findings Lumbar Spine X-Ray 04/29/23 00:00 FL lumbar spine 2-3V CLINICAL HISTORY: L4-S1 DECOMP AND FUSION COMPARISON STUDY: None. FLUOROSCOPY TIME: 25 seconds. Ka, r: 23.07 mGy FLUOROSCOPIC IMAGES: 2 FINDINGS: Fluoroscopy was provided during L4-L5 and L5-S1 discectomies. Posterior decompression is noted with bilateral pedicle screws at the L4, L5 and S1 levels. Hardware is intact. There are interconnecting rods. IMPRESSION: Fluoroscopy provided during L4-S1 posterior decompression, fusion and discectomy. ACT 112: Negative or not required by law. Electronically signed by: Marques Mart M.D. 04/29/2023 2:15 PM
--- NOTE | 2023-05-01 14:03 | Orthopedic Progress Note ---
Date of Service May 01, 2023 Assessment & Plan (1) Neurogenic claudication due to lumbar spinal stenosis: Plan: At this time we will continue physical therapy without the weekend and plan for transfer to [facility] on Thursday. Admission and Anticipated Discharge Date Admission Date: April 29, 2023 Subjective Back pain controlled leg pain improved Physical Exam Physical Exam: Patient is currently in bed. She is comfortable. Discussed when to testing. Results & Data Vital Signs (Past 12 Hours) Vital Signs Temp Pulse Pulse Resp BP Pulse Ox O2 Del Method 05/01/23 10:00 69 156/72 H 05/01/23 06:25 72 109/62 05/01/23 07:02 36.4 C L 67 18 113/65 95 Room Air
[2023-05-01] MEDS: DOCUSATE SODIUM/SENNA 50/8.6MG TAB PO SCH (20:09)
[2023-05-02] MEDS: traMADol HCL 50 MG TABLET PO PRN ×5 (00:15→22:38)
[2023-05-02] MEDS: POLYETHYLENE (MIRALAX) 17 GM PACK PO SCH ×3 (00:16→13:05)
[2023-05-02 06:21] LABS: Hemoglobin 10.1 g/dl (12.0-16.0); Mean Corpuscular Hemoglobin 30.6 pg (25.0-34.0); Mean Corpuscular Hgb Conc 33.7 g/dL (32.0-36.0); Mean Corpuscular Volume 90.9 fL (80.0-100.0); Mean Platelet Volume 9.7 fL (9.4-12.4); Platelet Count 275 K/uL (130-400); RDW Coefficient of Variation 14.6 % (11.5-14.5); RDW Standard Deviation 48.2 fL (36.4-46.3); White Blood Count 12.24 K/ul (4.8-10.8)
[2023-05-02 06:26] LABS: BUN Creatinine Ratio 41.9 (10-20); Calcium 8.7 mg/dl (8.6-10.3); Creatinine Clr Calc Pharmacy 47.9 ml/min; Est GFR (African American) 73.4 ml/min; Est GFR (Non-African American) 63.4 ml/min; Potassium 4.7 mmol/L (3.5-5.1)
[2023-05-02] MEDS: POTASSIUM CHLORIDE CRTAB 20 MEQ TABCR PO SCH (08:31)
[2023-05-02] MEDS: predniSONE 1 MG TAB PO SCH (08:31)
[2023-05-02] MEDS: FUROSEMIDE 40 MG TAB PO SCH (08:31)
[2023-05-02] MEDS: PANTOprazole 40 MG TAB PO SCH (08:31)
[2023-05-02] MEDS: METOPROLOL SUCC 50MG EXT REL TAB PO SCH (08:31)
[2023-05-02] MEDS: dexAMETHasone 6 MG in SYRINGE 0 ML IV SCH (08:31)
[2023-05-02] MEDS: EZETIMIBE 10 MG TAB PO SCH (08:32)
[2023-05-02] MEDS: VALSARTAN 80 MG TAB PO SCH ×2 (08:32→19:47)
--- NOTE | 2023-05-02 08:37 | Orthopedic Progress Note ---
Date of Service May 02, 2023 Assessment & Plan (1) Neurogenic claudication due to lumbar spinal stenosis: Plan: At this time we will continue physical therapy monitor YUVAL output anticipate discharge to rehab tomorrow. Admission and Anticipated Discharge Date Admission Date: April 29, 2023 Subjective Back pain controlled leg pain improved Physical Exam Physical Exam: Patient is in bed. She is comfortable. Is for strength testing. Results & Data Vital Signs (Past 12 Hours) Vital Signs Temp Pulse Pulse Resp BP BP Pulse Ox 05/02/23 07:13 36.8 C 75 16 120/74 96 05/01/23 22:49 36.5 C 70 18 134/84 93 O2 Del Method 05/02/23 07:13 Room Air 05/01/23 22:49 Room Air
--- NOTE | 2023-05-02 14:04 | Hospitalist Progress Note ---
Date of Service May 02, 2023 Assessment & Plan (1) Neurogenic claudication due to lumbar spinal stenosis: Plan: POD#3 s/p L4-S1 Decompression and Fusion, Spinal Cord Monitoring Per ortho for pain control, wound care, anticoagulation and activities Post-op blood loss anemia Hgb stable at 10.1 ( pre-op 13.3) in setting of post-op blood loss, dilutional factors Asymptomatic during exam Continue to monitor CBC daily (2) CHF (congestive heart failure): Plan: Euvolemic. Continue home diuretics, potassium. IV fluids discontinued, low sodium diet (3) Hypertension: Plan: Chronic; stable. Continue valsartan, metoprolol Knee Pain Per pt multiple images done outpt PRN pain control as ordered Consider ortho follow up for this as well Thank you for this consultation. We will follow the patient with you during their hospital stay. You can reach a member of the [facility] Hospitalist Team 26/01 via [employer]. Admission and Anticipated Discharge Date Admission Date: April 29, 2023 Subjective Pt seen in the AM. Noted that her left knee that was in a brace was painful. Later notified by nursing that pt wanted to report vasovagal episodes that were occurring at home as well. Gets hot and sweaty, per nuring BP elevated and glucose level wnl. Pt did note when seen that she had not yet had a BM in spite of miralax, milk of magnesia and was drinking a prune juice/apple juice drink to help. Review of Systems Review of Systems: All systems reviewed & are unremarkable except as noted in Subjective Physical Exam Physical Exam: General: Alert, oriented. No acute distress Skin: No noted rashes or bruises Psych: Appropriate mood and affect Neuro: No gross deficits HEENT: NC/AT Chest: Nontender to palpation. CV: RRR Resp: no increased effort of breathing Abdomen: Soft, nontender, nondistended. Extremities: No edema in lower extremities bilaterally. Results & Data Results & Data Vital Signs (Past 12 Hours) Vital Signs Temp Pulse Resp BP Pulse Ox O2 Del Method 05/02/23 07:35 Room Air 05/02/23 07:13 36.8 C 75 16 120/74 96 Room Air
[2023-05-02] MEDS: oxyCODONE HCL IR 5 MG TAB (IMMEDIATE RELEASE) PO PRN ×2 (15:40→16:59)
[2023-05-02] MEDS: DOCUSATE SODIUM/SENNA 50/8.6MG TAB PO SCH (19:48)
[2023-05-03] MEDS: oxyCODONE HCL IR 5 MG TAB (IMMEDIATE RELEASE) PO PRN (00:52)
[2023-05-03] MEDS: traMADol HCL 50 MG TABLET PO PRN ×4 (04:22→21:07)
[2023-05-03] MEDS: FUROSEMIDE 40 MG TAB PO SCH (08:05)
[2023-05-03] MEDS: PANTOprazole 40 MG TAB PO SCH (08:06)
[2023-05-03] MEDS: EZETIMIBE 10 MG TAB PO SCH (08:06)
[2023-05-03] MEDS: VALSARTAN 80 MG TAB PO SCH ×2 (08:06→19:49)
[2023-05-03] MEDS: predniSONE 1 MG TAB PO SCH (08:06)
[2023-05-03] MEDS: POTASSIUM CHLORIDE CRTAB 20 MEQ TABCR PO SCH (08:06)
[2023-05-03] MEDS: METOPROLOL SUCC 50MG EXT REL TAB PO SCH (08:06)
[2023-05-03 08:12] LABS: Albumin Globulin Ratio 1.2 (0.9-2); Albumin Level 3.8 gm/dl (3.4-5.0); BUN Creatinine Ratio 30.8 (10-20); Bilirubin,Total 0.7 mg/dl (0.2-1.0); Calcium 9.1 mg/dl (8.6-10.3); Creatinine Clr Calc Pharmacy 45.2 ml/min; Est GFR (African American) 68.6 ml/min; Est GFR (Non-African American) 59.2 ml/min; Globulin 3.1 gm/dl (2.5-4.0); Magnesium 2.2 mg/dl (1.7-2.4); Phosphorus 2.8 mg/dl (2.5-4.9); Potassium 4.5 mmol/L (3.5-5.1); Total Protein 6.9 gm/dl (6.0-8.3)
[2023-05-03] MEDS: ACETAMINOPHEN 500 MG TAB PO PRN ×2 (10:12→19:55)
--- NOTE | 2023-05-03 10:27 | Hospitalist Progress Note ---
Date of Service May 03, 2023 Assessment & Plan (1) Neurogenic claudication due to lumbar spinal stenosis: Plan: POD#4 s/p L4-S1 Decompression and Fusion, Spinal Cord Monitoring Per ortho for pain control, wound care, anticoagulation and activities PT/OT Post-op blood loss anemia Hgb stable at 11 ( pre-op 13.3) in setting of post-op blood loss, dilutional factors Asymptomatic during exam Continue to monitor CBC daily (2) CHF (congestive heart failure): Plan: Euvolemic. Continue home diuretics, potassium. IV fluids discontinued, low sodium diet (3) Hypertension: Plan: Chronic; stable. Continue valsartan, metoprolol Knee Pain Per pt multiple images done outpt PRN pain control as ordered Consider ortho follow up for this as well Thank you for this consultation. We will follow the patient with you during their hospital stay. You can reach a member of the [facility] Hospitalist Team 26/01 via [employer]. Admission and Anticipated Discharge Date Admission Date: April 29, 2023 Subjective Pt seen in the AM. States that she has finally had her BMs, one overnight and two this morning. Noted that her left knee that was in a brace was still painful but pain medications helped. Overall feeling better. Review of Systems Review of Systems: All systems reviewed & are unremarkable except as noted in Subjective Physical Exam Physical Exam: General: Alert, oriented. No acute distress Skin: No noted rashes or bruises Psych: Appropriate mood and affect Neuro: No gross deficits HEENT: NC/AT Chest: Nontender to palpation. CV: RRR Resp: no increased effort of breathing Abdomen: Soft, nontender, nondistended. Extremities: No edema in lower extremities bilaterally. Results & Data Results & Data Vital Signs (Past 12 Hours) Vital Signs Temp Pulse Resp BP Pulse Ox O2 Del Method 05/03/23 09:30 Room Air 05/03/23 07:08 36.5 C 80 16 157/87 H 96 Room Air
[2023-05-03 11:43] LABS: Basophils # (auto) 0.02 K/uL (0.00-0.20); Basophils % (auto) 0.2 %; Eosinophils # (auto) 0.09 K/uL (0.00-0.50); Hematocrit (blood only) 33.9 % (37.0-47.0); Hemoglobin 11.1 g/dl (12.0-16.0); Immature Granulocytes # (auto) 0.03 K/uL (0.01-0.20); Immature Granulocytes % (auto) 0.3 %; Lymphocytes # (auto) 1.08 K/uL (1.20-3.40); Lymphocytes % (auto) 11.8 %; Mean Corpuscular Hemoglobin 30.3 pg (25.0-34.0); Mean Corpuscular Hgb Conc 32.7 g/dL (32.0-36.0); Mean Corpuscular Volume 92.6 fL (80.0-100.0); Mean Platelet Volume 9.5 fL (9.4-12.4); Monocytes # (auto) 1.13 K/uL (0.11-0.59); Monocytes % (auto) 12.3 %; Neutrophils # (auto) 6.84 K/uL (1.40-6.50); Neutrophils % (auto) 74.4 %; Platelet Count 305 K/uL (130-400); RDW Coefficient of Variation 14.3 % (11.5-14.5); RDW Standard Deviation 48.7 fL (36.4-46.3); Red Blood Count 3.66 M/uL (4.20-5.40); White Blood Count 9.19 K/ul (4.8-10.8)
--- NOTE | 2023-05-03 12:20 | Orthopedic Progress Note ---
Date of Service May 03, 2023 Assessment & Plan (1) Neurogenic claudication due to lumbar spinal stenosis: Plan: At this time we will continue physical therapy. We will change her dressing DC drain today. Anticipate discharge to SNF tomorrow. Admission and Anticipated Discharge Date Admission Date: April 29, 2023 Subjective Patient progressing appropriately. Leg pain improved. Physical Exam Physical Exam: Patient is in the chair at bedside patient is comfortable. Good strength testing. Results & Data Vital Signs (Past 12 Hours) Vital Signs Temp Pulse Resp BP Pulse Ox O2 Del Method 05/03/23 09:30 Room Air 05/03/23 07:08 36.5 C 80 16 157/87 H 96 Room Air
[2023-05-03] MEDS: CALCIUM CITRATE 950 MG TAB PO SCH ×2 (14:50→19:43)
[2023-05-03] MEDS: DOCUSATE SODIUM/SENNA 50/8.6MG TAB PO SCH (19:44)
[2023-05-03] MEDS ORDERED: CALCIUM CITRATE 950 MG TAB PO SCH (21:00)
[2023-05-04] MEDS: traMADol HCL 50 MG TABLET PO PRN ×5 (01:10→21:13)
[2023-05-04 06:18] LABS: Basophils # (auto) 0.02 K/uL (0.00-0.20); Basophils % (auto) 0.2 %; Eosinophils # (auto) 0.12 K/uL (0.00-0.50); Eosinophils % (auto) 1.4 %; Hematocrit (blood only) 33.7 % (37.0-47.0); Hemoglobin 11.2 g/dl (12.0-16.0); Immature Granulocytes # (auto) 0.04 K/uL (0.01-0.20); Immature Granulocytes % (auto) 0.5 %; Lymphocytes # (auto) 0.87 K/uL (1.20-3.40); Lymphocytes % (auto) 10.5 %; Mean Corpuscular Hemoglobin 30.3 pg (25.0-34.0); Mean Corpuscular Hgb Conc 33.2 g/dL (32.0-36.0); Mean Corpuscular Volume 91.1 fL (80.0-100.0); Mean Platelet Volume 9.3 fL (9.4-12.4); Monocytes # (auto) 1.13 K/uL (0.11-0.59); Monocytes % (auto) 13.6 %; Neutrophils # (auto) 6.12 K/uL (1.40-6.50); Neutrophils % (auto) 73.8 %; Platelet Count 323 K/uL (130-400); RDW Coefficient of Variation 14.2 % (11.5-14.5)
[2023-05-04 06:33] LABS: Albumin Globulin Ratio 1.2 (0.9-2); Albumin Level 3.7 gm/dl (3.4-5.0); BUN Creatinine Ratio 29.1 (10-20); Bilirubin,Total 0.6 mg/dl (0.2-1.0); Creatinine Clr Calc Pharmacy 52.1 ml/min; Est GFR (African American) 81.4 ml/min; Est GFR (Non-African American) 70.2 ml/min; Magnesium 2.1 mg/dl (1.7-2.4); Phosphorus 3.3 mg/dl (2.5-4.9); Potassium 4.4 mmol/L (3.5-5.1); Total Protein 6.7 gm/dl (6.0-8.3)
[2023-05-04] MEDS: METOPROLOL SUCC 50MG EXT REL TAB PO SCH (08:03)
[2023-05-04] MEDS: VALSARTAN 80 MG TAB PO SCH ×2 (08:03→21:14)
[2023-05-04] MEDS: POTASSIUM CHLORIDE CRTAB 20 MEQ TABCR PO SCH (08:03)
[2023-05-04] MEDS: FUROSEMIDE 40 MG TAB PO SCH (08:03)
[2023-05-04] MEDS: predniSONE 1 MG TAB PO SCH (08:04)
[2023-05-04] MEDS: PANTOprazole 40 MG TAB PO SCH (08:04)
[2023-05-04] MEDS: EZETIMIBE 10 MG TAB PO SCH (08:04)
[2023-05-04] MEDS: CALCIUM CITRATE 950 MG TAB PO SCH ×2 (08:04→21:14)
[2023-05-04 11:41] LABS: Appearance Urine Clear (Clear); Bilirubin Urine Negative (Negative); Blood Urine Negative (Negative); Color Urine Yellow; Glucose Urine UA Negative (Negative); Ketones Urine Negative (Negative); Leukocyte Esterase Urine Negative (Negative); Nitrite Urine Negative (Negative); Protein Urine Negative (Negative); Specific Gravity Urine 1.018 (1.000-1.030); Urobilinogen Urine Negative (Negative); pH Urine 7.5 (4.5-7.5)
[2023-05-04] MEDS: ACETAMINOPHEN 500 MG TAB PO PRN ×2 (12:07→21:18)
--- NOTE | 2023-05-04 13:25 | Discharge Summary ---
Date of Service May 04, 2023 Admission HPI Per Admitting Provider This is an 83-year-old female who presents with chronic persistent back and leg pain and failing since course of nonoperative care she is here for surgical invention. Principal Diagnosis Lumbar spinal stenosis with neurogenic claudication Discharge Data Allergies Allergy/AdvReac Type Severity Reaction Status Date / Time aspirin Allergy "all over Verified 04/29/23 07:38 aching in the intestinal tract" NSAIDS (Non-Steroidal Allergy "all over Verified 04/29/23 07:38 Anti-Inflamma aching in the intestinal tract" empagliflozin AdvReac Yeast Verified 04/29/23 07:38 [From [facility]] infections (per records) Consultations 04/29/23 14:57 Consult Hospitalist Routine Procedures Performed Operation Date: 04/29/23 09:05 Actual Procedures p L4-S1 Decompression and Fusion, Spinal Cord Monitoring(Not Applicable) - Sebastian Henley DO Ordered Studies 04/29/23 FL lumbar spine 2-3V Routine Hospital Course (1) Neurogenic claudication due to lumbar spinal stenosis: Patient went multilevel lumbar decompression fusion tolerated this well was taken to the orthopedic floor postoperative. Postop course was progressive and stable. YUVAL drain decreasing appropriate. Excellent strength testing. Separately discharged to rehab. Discharge orders instructions found in chart for further review. Total Time Total Time Spent Total Time Spent (In Minutes): 20 minutes Discharge Plan Discharge Items Patient Disposition: Transfer Detention Fac Reason For Visit: Spinal Stenosis, Lumbar Region with Neurogenic Cla Discharge Diagnosis: Lumbar spinal stenosis with neurogenic claudication Activity: As commented below Non-emergency contact: Primary Care Provider Call non-emergency contact if: you have any medication questions Follow-up/Referrals: Yamil Griffin M.D. [Primary Care Provider] - Diet: Regular Addtl Attending Provider Instructions: ACTIVITY RECOMMENDATIONS: SELF CARE INSTRUCTIONS AFTER THORACIC/LUMBAR FUSIONS 1. You may walk to your tolerance. It is good exercise for your legs and back. Expect some back and intermittent leg aches and pains. 2. You may perform "counter-top" level activities (make a sandwich, avtar with a project, etc.). 3. No bending or lifting of more than 10 pounds or back twisting of any nature (roll like a log when turning in bed). 4. You may ride in a car for 20-30 minutes at a time. No driving until after your first visit with your doctor. 5. Frequent changes of position and restricting sitting to 30 minutes at a time will help limit the amount of back spasms and stiffness you may experience. 6. You may discontinue the use of ambulatory aids (cane, crutches, etc.) once your strength and confidence allow. 7. You may die drawing checker the shower and let water strike your incision when you arrive home at least once daily. Do not take a tub bath, sit in a hot tub or go into a swimming pool until after your first recheck in the office. SPECIAL CARE INSTRUCTIONS: VERY IMPORTANT TO READ AND REVIEW A. Your surgical incision has been closed with a cosmetic suture under the skin that will dissolve in about 6 weeks. In 14 days, you can use a pair of clean scissors and cut the suture that is left outside of the skin at the ends of your incision. 1. The small skin tapes can be removed 7 days after surgery if they have not fallen off by that point. 2. You may keep the wound open to air as much as possible to promote healing after post-op day number 5 unless told otherwise by your doctor. 3. If you think the wound looks like it is becoming infected (redness or worsening drainage) and/or you are experiencing fever, chill or worsening back pain and muscle spasms, contact the office so that we may evaluate you as soon as possible. B. Complications are uncommon, but please contact us if you have any signs or symptoms of: 1. wound infection (fever higher than 102.5 degrees F, redness, separation of wound, drainage, or increasing pain from the incision) 2. blood clots in legs (pain, swelling, redness and warmth in legs) 3. urinary tract infection (fever higher than 102.5 degrees F, burning upon urination or increased frequency of urination) 4. nerve problems (inability to walk on your toes or heels, numbness, loss of bowel or bladder control) 5. any other symptoms that concern you C. Please call the office at if you have any concerns or questions about your operation or recovery. D. No smoking! Smoking drastically decreases the chance of a solid fusion. E. Do not take any anti-inflammatory medications (Indocin, Advil, Motrin, Aspirin, Naprosyn, etc.) as these may inhibit the chance of a solid fusion. Tylenol is okay to take for pain. MANAGING PAIN AFTER SPINAL SURGERY 1. Narcotic medication is intended for short-term use and will be provided for surgical pain. Surgical pain usually lasts for a period of 4-6 weeks. Narcotic medication includes Percocet, Vicodin, Darvocet, Tylenol #3 or Lortab. 2. Longer-term pain is more appropriately treated with non-narcotic medication such as Tylenol ES. 3. Muscle spasm is not appropriately treated with narcotics. Muscle relaxers such as Soma, Flexeril or Skelaxin can be used along with Tylenol ES. 4. Remember that we all live with some "aches and pains". This is not unusual or uncommon after an injury or as we get older. a. Back pain is expected and may include muscle spasms for 4 to 6 weeks after surgery. The pain should gradually improve. If the pain worsens for no apparent reason, please contact the office. b. Intermittent leg pain may also be experienced and should not be concerned about unless it worsens for no apparent reason. If so, please contact the office. 5. We will provide appropriate medication within the normal guidelines of their prescribed use. We will also be very cautious and aware of potential abuse and extended duration of patients' medication needs. a. Pain medications are for your comfort and to assist with sleep and rest so that the tissue can heal. They are not provided in order to return to normal activity and should not be used through the day. To do so or worsening pain at night can result from ongoing tissue damage and development of tolerance to the prescribed medicine. 6. Please allow 2-3 days to process refills. Prescriptions will not be mailed but must be picked up at the office. FOLLOW UP VISIT: Keep your scheduled follow-up appointment. Any questions, please call the office at . Pending Studies at Discharge: No Stand-Alone Forms: My [employer], Smoking Cessation Skilled Items Patient informed of condition?: Yes DNR: No Discharge Level of Care: Skilled Communicable Disease: No Discharge Prognosis: Improving Lines: None Urinary Catheter: No Medications and DC Order Prescriptions: New tramadol 50 mg tablet 50 mg PO Q6H PRN (Reason: pain, moderate) Qty: 30 0RF Continued furosemide 40 mg Tablet 40 mg PO QAM metoprolol succinate 50 mg Tablet Extended Release 24 Hr 50 mg PO QAM sumatriptan succinate [Imitrex] 50 mg Tablet 25 mg PO UD PRN (Reason: migraines) Rx Instructions: take 1 tab at onset of headache; if no relief may repeat 1 tab after at least 2 hrs; max = 4 tabs/24 hr [id number] 50-325-40 mg Tablet 1 tab PO Q4H PRN (Reason: migraines) pantoprazole 40 mg Tablet,Delayed Release (Dr/Ec) 40 mg PO QAM valsartan 40 mg Tablet 40 mg PO BID ezetimibe 10 mg Tablet 10 mg PO QAM prednisone 2 mg Tablet,Delayed Release (Dr/Ec) 4 mg PO QAM potassium chloride 20 mEq Tablet Extended Release 20 meq PO QAM Discharge Orders: Discharge Order (Routine); Ordered 05/04/23 Ordered By: Sebastian Henley Admission Data Admit Date/Time: 04/29/23 11:36 Attending Provider: Sebastian Henley Admit Provider: Sebastian Henley Primary Care Provider: Yamil Griffin Other Providers: Izzy Woodard ; Margie Babin ; Regina May ; Sebastian Henley
--- NOTE | 2023-05-04 16:46 | Hospitalist Progress Note ---
Date of Service May 04, 2023 Assessment & Plan (1) Neurogenic claudication due to lumbar spinal stenosis: Plan: POD#5 s/p L4-S1 Decompression and Fusion, Spinal Cord Monitoring Per ortho for pain control, wound care, anticoagulation and activities PT/OT-evaluated and appreciate recommendation Post-op blood loss anemia Hgb stable at 11 ( pre-op 13.3) in setting of post-op blood loss, dilutional factors Asymptomatic during exam Continue to monitor CBC daily Hemoglobin remains stable at 11.2 (2) CHF (congestive heart failure): Plan: Euvolemic. Continue home diuretics, potassium. IV fluids discontinued, low sodium diet No signs and or symptoms of CHF (3) Hypertension: Plan: Chronic; stable. Continue valsartan, metoprolol Knee Pain Per pt multiple images done outpt PRN pain control as ordered Consider ortho follow up for this as well Thank you for this consultation. We will follow the patient with you during their hospital stay. Medically stable to be discharged Admission and Anticipated Discharge Date Admission Date: April 29, 2023 Subjective 05/04/2023 The patient was seen and examined in medical floor She has been complaining of some back pain without radiation Has been discharged from the primary and will be leaving in the afternoon Review of Systems Review of Systems: All systems reviewed and are unremarkable except as noted below Physical Exam Physical Exam: Patient is in the chair at bedside patient is comfortable. Good strength testing. Constitutional: well developed, well nourished, + ill appearing and + obese Eyes: PERRL, conjunctivae normal, anicteric sclerae ENMT: external ear and nose normal, oropharynx normal Neck: trachea midline, no thyromegaly Respiratory: no respiratory distress Cardiovascular: Rate/Rhythm: regular rate and regular rhythm; not tachycardic Heart Sounds: normal S1 and normal S2; no murmur Gastrointestinal (Abdomen): Inspection/Auscultation: normal bowel sounds; abdomen not distended Percussion/Palpation: abdomen soft; abdomen nontender Musculoskeletal: No acute arthritis involving any of the joint Neurologic: normal touch/pain/proprioception and moves all extremities; no focal motor deficits Psychiatric: A+Ox3, euthymic affect Lymphatic: no cervical or axillary lymphadenopathy Results & Data Results & Data Vital Signs (Past 12 Hours) Vital Signs Temp Pulse Resp BP Pulse Ox O2 Del Method 05/04/23 15:09 36.5 C 73 16 139/82 95 Room Air 05/04/23 07:30 Room Air 05/04/23 06:17 36.4 C L 79 16 150/85 H 93 Room Air
[2023-05-04] MEDS: DOCUSATE SODIUM/SENNA 50/8.6MG TAB PO SCH (21:16)
[2023-05-05] MEDS: traMADol HCL 50 MG TABLET PO PRN ×3 (01:56→10:22)
[2023-05-05] MEDS: ACETAMINOPHEN 500 MG TAB PO PRN ×2 (04:56→10:22)
[2023-05-05 06:52] LABS: Albumin Globulin Ratio 1.2 (0.9-2); Albumin Level 3.5 gm/dl (3.4-5.0); BUN Creatinine Ratio 22.9 (10-20); Basophils # (auto) 0.02 K/uL (0.00-0.20); Basophils % (auto) 0.2 %; Bilirubin,Total 0.7 mg/dl (0.2-1.0); Calcium 9.1 mg/dl (8.6-10.3); Creatinine Clr Calc Pharmacy 49.6 ml/min; Eosinophils # (auto) 0.21 K/uL (0.00-0.50); Eosinophils % (auto) 2.4 %; Est GFR (African American) 76.6 ml/min; Est GFR (Non-African American) 66.1 ml/min; Hematocrit (blood only) 30.3 % (37.0-47.0); Hemoglobin 10.4 g/dl (12.0-16.0); Immature Granulocytes # (auto) 0.05 K/uL (0.01-0.20); Immature Granulocytes % (auto) 0.6 %; Lymphocytes # (auto) 0.96 K/uL (1.20-3.40); Lymphocytes % (auto) 11.2 %; Magnesium 1.9 mg/dl (1.7-2.4); Mean Corpuscular Hemoglobin 30.5 pg (25.0-34.0); Mean Corpuscular Hgb Conc 34.3 g/dL (32.0-36.0); Mean Corpuscular Volume 88.9 fL (80.0-100.0); Mean Platelet Volume 9.2 fL (9.4-12.4); Monocytes # (auto) 1.45 K/uL (0.11-0.59); Monocytes % (auto) 16.9 %; Neutrophils # (auto) 5.91 K/uL (1.40-6.50); Neutrophils % (auto) 68.7 %; Phosphorus 3.5 mg/dl (2.5-4.9); Platelet Count 318 K/uL (130-400); RDW Coefficient of Variation 14.1 % (11.5-14.5); RDW Standard Deviation 45.7 fL (36.4-46.3); Red Blood Count 3.41 M/uL (4.20-5.40); Total Protein 6.5 gm/dl (6.0-8.3)
[2023-05-05] MEDS: POTASSIUM CHLORIDE CRTAB 20 MEQ TABCR PO SCH (09:22)
[2023-05-05] MEDS: VALSARTAN 80 MG TAB PO SCH (09:22)
[2023-05-05] MEDS: FUROSEMIDE 40 MG TAB PO SCH (09:23)
[2023-05-05] MEDS: PANTOprazole 40 MG TAB PO SCH (09:23)
[2023-05-05] MEDS: METOPROLOL SUCC 50MG EXT REL TAB PO SCH (09:23)
[2023-05-05] MEDS: CALCIUM CITRATE 950 MG TAB PO SCH (09:23)
[2023-05-05] MEDS: EZETIMIBE 10 MG TAB PO SCH (09:23)
[2023-05-05] MEDS: predniSONE 1 MG TAB PO SCH (09:24)
--- NOTE | 2023-05-05 13:25 | Discharge Summary ---
Date of Service May 05, 2023 Admission HPI Per Admitting Provider This is an 83-year-old female who presents with chronic persistent back and leg pain and failing since course of nonoperative care she is here for surgical invention. Principal Diagnosis Lumbar spinal stenosis with neurogenic claudication Discharge Data Allergies Allergy/AdvReac Type Severity Reaction Status Date / Time aspirin Allergy "all over Verified 04/29/23 07:38 aching in the intestinal tract" NSAIDS (Non-Steroidal Allergy "all over Verified 04/29/23 07:38 Anti-Inflamma aching in the intestinal tract" empagliflozin AdvReac Yeast Verified 04/29/23 07:38 [From Jardiance] infections (per records) Consultations 04/29/23 14:57 Consult Hospitalist Routine Procedures Performed Operation Date: 04/29/23 09:05 Actual Procedures p L4-S1 Decompression and Fusion, Spinal Cord Monitoring(Not Applicable) - Sebastian Henley DO Ordered Studies 04/29/23 [place] lumbar spine 2-3V Routine Hospital Course (1) Neurogenic claudication due to lumbar spinal stenosis: Patient underwent multilevel lumbar decompression fusion trial as well as taken orthopedic for postoperative. Postop patient progressed steadily throughout her stay YUVAL drain decreasing probably. Becoming more independent. Subsequently discharged to rehab. Discharge orders instructions found in chart for further review. Total Time Total Time Spent Total Time Spent (In Minutes): 20 minutes Discharge Plan Discharge Items Patient Disposition: Transfer Halfway Fac Reason For Visit: Spinal Stenosis, Lumbar Region with Neurogenic Cla Discharge Diagnosis: Lumbar spinal stenosis with neurogenic claudication Activity: As commented below Non-emergency contact: Primary Care Provider Call non-emergency contact if: you have any medication questions Follow-up/Referrals: Yamil Griffin M.D. [Primary Care Provider] - Diet: Regular Addtl Attending Provider Instructions: ACTIVITY RECOMMENDATIONS: SELF CARE INSTRUCTIONS AFTER THORACIC/LUMBAR FUSIONS 1. You may walk to your tolerance. It is good exercise for your legs and back. Expect some back and intermittent leg aches and pains. 2. You may perform "counter-top" level activities (make a sandwich, avtar with a project, etc.). 3. No bending or lifting of more than 10 pounds or back twisting of any nature (roll like a log when turning in bed). 4. You may ride in a car for 20-30 minutes at a time. No driving until after your first visit with your doctor. 5. Frequent changes of position and restricting sitting to 30 minutes at a time will help limit the amount of back spasms and stiffness you may experience. 6. You may discontinue the use of ambulatory aids (cane, crutches, etc.) once your strength and confidence allow. 7. You may systems support engineer the shower and let water strike your incision when you arrive home at least once daily. Do not take a tub bath, sit in a hot tub or g o into a swimming pool until after your first recheck in the office. SPECIAL CARE INSTRUCTIONS: VERY IMPORTANT TO READ AND REVIEW A. Your surgical incision has been closed with a cosmetic suture under the skin that will dissolve in about 6 weeks. In 14 days, you can use a pair of clean scissors and cut the suture that is left outside of the skin at the ends of your incision. 1. The small skin tapes can be removed 7 days after surgery if they have not fallen off by that point. 2. You may keep the wound open to air as much as possible to promote healing after post-op day number 5 unless told otherwise by your doctor. 3. If you think the wound looks like it is becoming infected (redness or worsening drainage) and/or you are experiencing fever, chill or worsening back pain and muscle spasms, contact the office so that we may evaluate you as soon as possible. B. Complications are uncommon, but please contact us if you have any signs or symptoms of: 1. wound infection (fever higher than 102.5 degrees F, redness, separation of wound, drainage, or increasing pain from the incision) 2. blood clots in legs (pain, swelling, redness and warmth in legs) 3. urinary tract infection (fever higher than 102.5 degrees F, burning upon urination or increased frequency of urination) 4. nerve problems (inability to walk on your toes or heels, numbness, loss of bowel or bladder control) 5. any other symptoms that concern you C. Please call the office at if you have any concerns or questions about your operation or recovery. D. No smoking! Smoking drastically decreases the chance of a solid fusion. E. Do not take any anti-inflammatory medications (Indocin, Advil, Motrin, Aspirin, Naprosyn, etc.) as these may inhibit the chance of a solid fusion. Tylenol is okay to take for pain. MANAGING PAIN AFTER SPINAL SURGERY 1. Narcotic medication is intended for short-term use and will be provided for surgical pain. Surgical pain usually lasts for a period of 4-6 weeks. Narcotic medication includes Percocet, Vicodin, Darvocet, Tylenol #3 or Lortab. 2. Longer-term pain is more appropriately treated with non-narcotic medication such as Tylenol ES. 3. Muscle spasm is not appropriately treated with narcotics. Muscle relaxers such as Soma, Flexeril or Skelaxin can be used along with Tylenol ES. 4. Remember that we all live with some "aches and pains". This is not unusual or uncommon after an injury or as we get older. a. Back pain is expected and may include muscle spasms for 4 to 6 weeks after surgery. The pain should gradually improve. If the pain worsens for no apparent reason, please contact the office. b. Intermittent leg pain may also be experienced and should not be concerned about unless it worsens for no apparent reason. If so, please contact the office. 5. We will provide appropriate medication within the normal guidelines of their prescribed use. We will also be very cautious and aware of potential abuse and extended duration of patients' medication needs. a. Pain medications are for your comfort and to assist with sleep and rest so that the tissue can heal. They are not provided in order to return to normal activity and should not be used through the day. To do so or worsening pain at night can result from ongoing tissue damage and development of tolerance to the prescribed medicine. 6. Please allow 2-3 days to process refills. Prescriptions will not be mailed but must be picked up at the office. FOLLOW UP VISIT: Keep your scheduled follow-up appointment. Any questions, please call the office at . Pending Studies at Discharge: No Stand-Alone Forms: My Pramana, Smoking Cessation Skilled Items Patient informed of condition?: Yes DNR: No Discharge Level of Care: Skilled Communicable Disease: No Discharge Prognosis: Improving Lines: None Urinary Catheter: No Medications and DC Order Prescriptions: New tramadol 50 mg tablet 50 mg PO Q6H PRN (Reason: pain, moderate) Qty: 30 0RF Continued furosemide 40 mg Tablet 40 mg PO QAM metoprolol succinate 50 mg Tablet Extended Release 24 Hr 50 mg PO QAM sumatriptan succinate [Imitrex] 50 mg Tablet 25 mg PO UD PRN (Reason: migraines) Rx Instructions: take 1 tab at onset of headache; if no relief may repeat 1 tab after at least 2 hrs; max = 4 tabs/24 hr exvhbwxexi-yldhgoegphfph-eiql 50-325-40 mg Tablet 1 tab PO Q4H PRN (Reason: migraines) pantoprazole 40 mg Tablet,Delayed Release (Dr/Ec) 40 mg PO QAM valsartan 40 mg Tablet 40 mg PO BID ezetimibe 10 mg Tablet 10 mg PO QAM prednisone 2 mg Tablet,Delayed Release (Dr/Ec) 4 mg PO QAM potassium chloride 20 mEq Tablet Extended Release 20 meq PO QAM Discharge Orders: Discharge Order (Routine); Ordered 05/05/23 Ordered By: Sebastian Henley Admission Data Admit Date/Time: 04/29/23 11:36 Attending Provider: Sebastian Henley Admit Provider: Sebastian Henley Primary Care Provider: Yamil Griffin Other Providers: Izzy Woodard ; Margie Babin ; Regina May ; Sebastian Henley Other Interventions: Discharge Summary Assessment (RN) Last Done: 05/05/23 10:28
== END 2023-05-05 11:03 | DRG 454 ==
LOC: ASU 07:09 → SUATTDRO 11:36 → 3E 11:36

== ENCOUNTER 2023-06-18 09:19 | Inpatient (IN) ==
--- NOTE | 2023-06-16 16:24 | Anesthesiology Consultation ---
Date of Service June 16, 2023 Assessment & Plan (1) Encounter for pre-operative examination: Chart Review Chart Review: Acceptable Risk for Surgery (pending DOS labs) and Patient NOT seen in Pre Admission Testing - Will check CBC with diff (to recheck anemia) and PRP (to recheck Na) DOS -Infectious Disease screening: Per PAT nursing assessment on 06/16/23. No known infectious disease contacts in past 10 days or current infectious disease symptoms. No recent travel outside the country. L4-S1 decompression and fusion 04/29/23= Done under [facility] with Grade 2 view with Purcell #2. ETT #7.0. - Cardiology note (04/08/23) (prior to 04/29/23 lumbar fusion) : "Scheduled for L4 and L5 decompression infusion [sic]. We will await repeat echo prior to clearance due to mildly reduced EF on stress testing." Subsequent echo performed 04/13/2023 with improved EF of 60-65%. Her follow-up cardiology note (04/13/23): ' I have personally interpreted the result note of your echo.. Normal measurements of the aorta.. Strong heart muscle.. Normal heart chamber measurements.. No significant heart valve issues" - PCP visit (04/15/23) (prior to 04/29/23 lumbar fusion): "preoperative testing reviewed including EKG and labs. She is for upcoming lumbar fusion.. There were no major concerns from the lab/EKG perspective.. She has had full cardiac work-up in the last year as well including recent echo which was reassuring.. By Vo criteria she should be considered moderate risk for lumbar spine surgery with 1-5% risk of perioperative ASCE/MACE" Consults Requested none ASA ASA4 Proposed Anesthesia Anesthesia Type: General Risk / Benefits Reviewed With: PT / POA / Parent / Guardian, Accepts Plan and Informed Consent Obtained History Surgery Operation Date: 06/18/23 10:55 Proposed Procedures p Open Incision and Drainage of Deep Abscess (Subfascial), Posterior Spine; Lumbar, Sacral, or Lumbosacral - Sebastian Henley DO Height/Weight Height: 5 ft 2 in Weight: 67.132 kg Allergies Allergy/AdvReac Type Severity Reaction Status Date / Time aspirin Allergy "all over Verified 06/18/23 09:54 aching in the intestinal tract" NSAIDS (Non-Steroidal Allergy "all over Verified 06/18/23 09:54 Anti-Inflamma aching in the intestinal tract" empagliflozin AdvReac Yeast Verified 06/18/23 09:54 [From Jardiance] infections (per records) Medications Home Medications Medication Instructions Recorded Confirmed Last Taken njhmtuldwv-rfgcmxdgqhrik-pqbjcdaf 1 tab PO Q4H PRN migraines 04/21/23 06/18/23 06/04/23 14:00 50 mg-325 mg-40 mg tablet ezetimibe 10 mg tablet 10 mg PO QAM 04/21/23 06/18/23 06/17/23 18:30 furosemide 40 mg tablet 40 mg PO QAM 04/21/23 06/18/23 06/17/23 07:00 metoprolol succinate 50 mg 50 mg PO QAM 04/21/23 06/18/23 06/18/23 06:30 tablet,extended release 24 hr pantoprazole 40 mg tablet,delayed 40 mg PO QAM 04/21/23 06/18/23 06/18/23 06:30 release potassium chloride 20 mEq 20 meq PO QAM 04/21/23 06/18/23 06/17/23 07:00 tablet,extended release sumatriptan succinate 50 mg tablet 25 mg PO UD PRN migraines 04/21/23 06/18/23 04/29/23 03:00 (Imitrex) valsartan 40 mg tablet 40 mg PO BID 04/21/23 06/18/23 06/17/23 20:00 tramadol 50 mg tablet 50 mg PO Q6H PRN pain, moderate 04/30/23 06/18/23 06/18/23 06:30 #30 tabs hydrocodone 5 mg-acetaminophen 325 1 tab PO Q4H PRN Pain 06/16/23 06/18/23 06/17/23 19:00 mg tablet Active Medications Generic Name Dose Route Start Last Admin Trade Name Freq PRN Reason Stop Dose Admin Acetaminophen 1,000 mg 06/18/23 06:00 06/18/23 09:50 Acetaminophen 500 Mg Tab PO 06/18/23 18:00 1,000 mg PREOP DUY Administration Gabapentin 300 mg 06/18/23 06:00 06/18/23 09:50 Gabapentin 300 Mg Cap PO 06/18/23 18:00 300 mg PREOP DUY Administration Lactated Ringer's 1,000 mls @ 60 mls/hr 06/18/23 06:00 06/18/23 10:35 Lr IV 06/18/23 22:39 60 mls/hr .[id number] DUY Administration NPO Date Last Intake of Fluids: 06/18/23 Time Last Intake of Fluids: 06:30 Last Intake of Fluids Comment: sip water w/ meds Date Last Intake of Solids: 06/17/23 Time Last Intake of Solids: 22:30 Past Medical History Medical History History of recent fall 04/09/23 (mechanical fall after losing balance)- No head trauma or loss of consciousness. Schatzki's ring of distal esophagus Hx of congestive heart failure Follows with Dr. Bettencourt History of asthma PMR (polymyalgia rheumatica) Hx of migraines Hyperlipidemia Hypertension GERD (gastroesophageal reflux disease) Exercise / Class Metabolic Activity III < 4 Walking/Shop/Light housework Past Surgical History Surgical History History of spinal fusion Hx of cardiac cath 4+ years ago ([facility])- no stents Slow to wake up after anesthesia Hx of total hysterectomy with removal of both tubes and ovaries History of bladder surgery tacking x2 History of esophagogastroduodenoscopy (EGD) Hx of colonoscopy Hx of sinus surgery x2 Past Anesthesia History No Hx of Anesthesia Complications and No Family Hx of Anesthesia Complications History of PONV No Hx of PONV and No Hx of Motion Sickness Social History Smoking Status: Former smoker Do You Dip or Chew Tobacco: No Smoking End Date: age 42 Hx Alcohol Use: No Hx Substance Use: No substance use type: does not use Physical Exam Vital Signs Last Vital Signs Temp 36.8 C 06/18/23 09:48 Pulse 77 06/18/23 09:48 Resp 20 06/18/23 09:48 BP 162/77 H 06/18/23 09:48 Pulse Ox 20 L 06/18/23 09:48 O2 Del Method Room Air 06/18/23 09:48 ENMT Mouth: no dentition abnormality Thyromental Distance: < 3.5 Finger Breadths Mallampati Class: II Neck normal visual inspection and trachea midline; neck extension not limited Respiratory normal respiratory effort Auscultation: + diminished lung sounds Cardiovascular Rate/Rhythm: regular rate and regular rhythm Heart Sounds: no murmur Vessels: no carotid bruit Musculoskeletal Spine: normal cervical ROM and no pain with cervical ROM Extremities: extremities normal to inspection; full ROM of extremities Neurologic moves all extremities Motor/Sensory: no sensory deficit Psychiatric Orientation: alert and oriented x 3 Lab Results Anesthesia Preop Results Results Anesthesia Widget: 2 WBC 9.51 K/ul (4.8-10.8) 06/18/23 Hgb 12.4 g/dl (12.0-16.0) 06/18/23 Hct 38.7 % (37.0-47.0) 06/18/23 Plt 475 K/uL (130-400) H 06/18/23 Na 137 mmol/L (136-145) 06/18/23 K 4.1 mmol/L (3.5-5.1) 06/18/23 Cl 102 mmol/L (98-107) 06/18/23 CO2 24 mmol/L (21-32) 06/18/23 BUN 24 mg/dl (6-23) H 06/18/23 Creat 1.04 mg/dl (0.6-1.2) 06/18/23 Glucose Level 110 mg/dl (70-99(Fasting)) H 06/18/23 POC Glucose 121 mg/dl (70-99) H 05/02/23 Urine Color Yellow 05/04/23 Urine Appearance Clear (Clear) 05/04/23 Urine pH 7.5 (4.5-7.5) 05/04/23 Urine Specific [place] 1.018 (1.000-1.030) 05/04/23 Urine Protein Negative (Negative) 05/04/23 Urine Glucose (UA) Negative (Negative) 05/04/23 Urine Ketones Negative (Negative) 05/04/23 Urine Blood Negative (Negative) 05/04/23 Urine Nitrite Negative (Negative) 05/04/23 Urine Bilirubin Negative (Negative) 05/04/23 Urine Urobilinogen Negative (Negative) 05/04/23 Urine Leukocyte Esterase Negative (Negative) 05/04/23 Blood Type A Positive 04/29/23 Antibody Screen NEGATIVE 04/29/23 Testing Laboratory Results 06/18/23 09:44 06/18/23 09:44 Anemia- labs done post op day 6 from lumbar decompression and fusion on 04/29/23 Hyponatremia- stable from 05/03/23 Electrocardiogram Date: 04/01/23 NSR at 78bpm. LAD. Minimal voltage criteria for LVH, may be normal variant. PRWP, consider anterior AR vs lead placement vs LVH. NS TWA. Echo performed 04/13/23* Chest X-Ray Date: 04/01/23 FINDINGS: Lung volumes are normal. Lungs are clear. There is no pneumothorax or pleural effusion. There is mild cardiomegaly. Mediastinal contours are normal. There is no evidence for pulmonary edema. IMPRESSION: No acute cardiopulmonary findings. Mild cardiomegaly. Echocardiogram Date: 04/13/23 LVEF 60-65%. Thickened aortic valve with mild AR. Thickened mitral valve with mild MR. Grade 1 diastolic dysfunction. Stress Test Date: 10/28/22 Type: nuclear No significant ischemia or infarction. Left ventricular systolic dysfunction noted with rest EF 42%, post-rest EF 40%. Mildly dilated LV cavity. Cardiac Catheterization Date: 05/01/20 Mild to moderate mid LAD artery stenosis. Normal LV systolic function. Recommendations: Medical therapy and aggressive risk factor modification.
[~2023-06-18 09:19] MED LIST changes: -LR 15ML/HR IV SCH; -LR 60ML/HR IV SCH
[2023-06-18] MEDS: LR 60ML/HR IV SCH ×2 (09:51→10:35)
[2023-06-18 10:04] LABS: Basophils # (auto) 0.07 K/uL (0.00-0.20); Basophils % (auto) 0.7 %; Eosinophils # (auto) 0.14 K/uL (0.00-0.50); Eosinophils % (auto) 1.5 %; Hematocrit (blood only) 38.7 % (37.0-47.0); Hemoglobin 12.4 g/dl (12.0-16.0); Immature Granulocytes # (auto) 0.03 K/uL (0.01-0.20); Immature Granulocytes % (auto) 0.3 %; Lymphocytes # (auto) 1.16 K/uL (1.20-3.40); Lymphocytes % (auto) 12.2 %; Mean Corpuscular Hemoglobin 29.5 pg (25.0-34.0); Mean Corpuscular Volume 92.1 fL (80.0-100.0); Monocytes # (auto) 1.16 K/uL (0.11-0.59); Monocytes % (auto) 12.2 %; Neutrophils # (auto) 6.95 K/uL (1.40-6.50); Neutrophils % (auto) 73.1 %; Platelet Count 475 K/uL (130-400); RDW Standard Deviation 47.7 fL (36.4-46.3); White Blood Count 9.51 K/ul (4.8-10.8)
[2023-06-18 10:15] LABS: BUN Creatinine Ratio 23.1 (10-20); Calcium 9.4 mg/dl (8.6-10.3); Creatinine Clr Calc Pharmacy 38.1 ml/min; Est GFR (African American) 58.4 ml/min; Est GFR (Non-African American) 50.3 ml/min; Potassium 4.1 mmol/L (3.5-5.1)
--- NOTE | 2023-06-18 11:45 | Communication Note ---
Date of Service: June 18, 2023 Patient is an ASA 4
[2023-06-18] MEDS ORDERED: PROMETHAZINE HCL 12.5 MG in SODIUM CHLORIDE 0.9% 50 ML IV PRN ×2 (11:46→16:00)
[2023-06-18] MEDS ORDERED: ONDANSETRON INJ 2 MG/ML 2 ML VIAL IV PRN ×2 (11:46→16:00)
[2023-06-18] MEDS ORDERED: LABETALOL HCL IV 5 MG/ML 20ML IV PRN (11:46)
[2023-06-18] MEDS ORDERED: NALOXONE HCL 0.4 MG/1 ML VIAL/CARP IV PRN ×2 (11:46→16:00)
[2023-06-18] MEDS ORDERED: ePHEDrine sulfate 50 MG/ML AMP IV PRN (11:46)
[2023-06-18] MEDS ORDERED: ATROPINE SULFATE 0.1 MG/ML 10ML SYR IV PRN (11:46)
--- NOTE | 2023-06-18 12:36 | History & Physical Bridge Note ---
Date of Service June 18, 2023 History & Physical Bridge Note I have examined the patient, reviewed the History & Physical and in the interval since the performance of the History & Physical I have noted the following changes of clinical significance: no changes noted
--- NOTE | 2023-06-18 12:38 | History & Physical Report ---
Date of Service June 18, 2023 Assessment & Plan (1) Seroma of musculoskeletal structure after musculoskeletal system procedure: Plan: Incision and drainage, open, of deep abscess suprafascial, posterior spine, lumbar, sacral or lumbosacral History of Present Illness Chief Complaint: Continue postop back pain Primary Care Provider: Yamil Griffin This is a 83-year-old female that status post lumbar decompression fusion with evidence of a postop seroma is here for I&D. Allergies Allergy/AdvReac Type Severity Reaction Status Date / Time aspirin Allergy "all over Verified 06/18/23 09:54 aching in the intestinal tract" NSAIDS (Non-Steroidal Allergy "all over Verified 06/18/23 09:54 Anti-Inflamma aching in the intestinal tract" empagliflozin AdvReac Yeast Verified 06/18/23 09:54 [From Jardiance] infections (per records) Home Medications Medication Instructions Recorded Confirmed Type szrjqlobsf-atulmkzyayoxf-jsrzmews 1 tab PO Q4H PRN migraines 04/21/23 06/18/23 History 50 mg-325 mg-40 mg tablet ezetimibe 10 mg tablet 10 mg PO QAM 04/21/23 06/18/23 History furosemide 40 mg tablet 40 mg PO QAM 04/21/23 06/18/23 History metoprolol succinate 50 mg 50 mg PO QAM 04/21/23 06/18/23 History tablet,extended release 24 hr pantoprazole 40 mg tablet,delayed 40 mg PO QAM 04/21/23 06/18/23 History release potassium chloride 20 mEq 20 meq PO QAM 04/21/23 06/18/23 History tablet,extended release sumatriptan succinate 50 mg tablet 25 mg PO UD PRN migraines 04/21/23 06/18/23 History (Imitrex) valsartan 40 mg tablet 40 mg PO BID 04/21/23 06/18/23 History tramadol 50 mg tablet 50 mg PO Q6H PRN pain, moderate 04/30/23 06/18/23 Rx #30 tabs hydrocodone 5 mg-acetaminophen 325 1 tab PO Q4H PRN Pain 06/16/23 06/18/23 History mg tablet Past Med/Surg History Medical History History of recent fall 04/09/23 (mechanical fall after losing balance)- No head trauma or loss of consciousness. Schatzki's ring of distal esophagus Hx of congestive heart failure Follows with Dr. Bettencourt History of asthma PMR (polymyalgia rheumatica) Hx of migraines Hyperlipidemia Hypertension GERD (gastroesophageal reflux disease) Surgical History History of spinal fusion Hx of cardiac cath 4+ years ago ([facility])- no stents Slow to wake up after anesthesia Hx of total hysterectomy with removal of both tubes and ovaries History of bladder surgery tacking x2 History of esophagogastroduodenoscopy (EGD) Hx of colonoscopy Hx of sinus surgery x2 Social History Smoking Status: Former smoker Smoking End Date: age 42; Second Hand Exposure: Yes (hx); Do You Dip or Chew Tobacco: No; Tobacco Cessation Education Requested by Patient: No Hx Alcohol Use: No Hx Substance Use: No Preferred Language: [place] Citizen Communication Ability: Effective Ramp Attendant Required: No Beliefs That Will Affect Care: None Current Living Situation: Alone Feels Safe at Home: Yes Safety Concerns: Feels Safe At This Time Assistive Devices: Glasses, Hearing Aid - Bilateral and Walker Physical Exam Physical Exam: Patient is alert and oriented Heart regular rhythm Lungs clear Results & Data Results & Data Vital Signs (Past 12 Hours) Vital Signs Temp Pulse Resp BP Pulse Ox O2 Del Method 06/18/23 09:48 36.8 C 77 20 162/77 H 20 L Room Air
[2023-06-18] MEDS ORDERED: VANCOMYCIN HCL 1000MG/20ML VIAL ONE (12:58)
[2023-06-18] MEDS ORDERED: GENTAMICIN SULFATE 40 MG/ML 2 ML VIAL ONE (12:58)
[2023-06-18] MEDS ORDERED: fentaNYL citrate PF 100 MCG/2 ML VIAL ONE (13:05)
[2023-06-18] MEDS ORDERED: BUPIVACAINE/EPINEPHRINE 0.5% MPF 1:200,000 30 ML VIAL ONE (13:06)
[2023-06-18] MEDS ORDERED: PROPOFOL IV EMULSION 10 MG/ML 20 ML VIAL IV ONE (13:43)
[2023-06-18] MEDS ORDERED: ONDANSETRON INJ 2 MG/ML 2 ML VIAL ONE (13:43)
[2023-06-18] MEDS ORDERED: ROCURONIUM BROMIDE 10 MG/ML 5 ML VIAL IV ONE (13:43)
[2023-06-18] MEDS ORDERED: SUGAMMADEX SODIUM 200 MG/2 ML VIAL IV ONE (13:43)
[2023-06-18] MEDS ORDERED: DEXAMETHASONE SOD INJ 4 MG/ML VIAL ONE (13:43)
--- NOTE | 2023-06-18 13:51 | Operative Report ---
Post Operative Report Pre & Post Diagnosis Operation Date: 06/18/23 10:55 Pre-Op diagnosis Postop lumbar seroma Postop diagnosis Same I identified the patient and participated in the time-out.: Yes Procedure Operation Date: 06/18/23 10:55 Irrigation and debridement lumbar spine Surgeon Sebastian Henley DO Vocational Counselor Kimberly Villalba Estimated Blood Loss 10 Findings Consistent with Post-Op Diagnosis Specimens Cultures of the lumbar epidural space Indications This is an 83-year-old patient that is status post lumbar decompression fusion. She has had continued back and leg pain imaging demonstrates evidence of significant fluid collection in the epidural space and she is here for I&D. Description of Procedure Patient was met with identified informed consent obtained. Patient was then taken to the operative suite underwent ablation placed in a prone position the Saran table atop the Babak frame. All bony promises well-padded eyes inspected to ensure no external pressure placed upon the. This point lumbar spine was prepped and draped in normal sterile fashion. Utilizing the previous lumbar incision site sharp dissection formed down to the fascia. The fascia was released and a large collection of serous fluid identified. Cultures were obtained. It did not appear to be infected. Several liters of antibiotic sali ne were then irrigated throughout the incision. Stimulan beads impregnated with vancomycin gentamicin were then placed throughout the incision. YUVAL drain inserted. The incision was then closed with 1 Vicryl the fascia 2-0 Vicryl subcutaneously and 4 Monocryl for final closure. Steri-Strips sterile dressing placed. Patient waken taken PACU in stable condition. Please note Kimberly Villalba was present at the entire procedure and all the patient positioning complex portion of the surgery and final closure. I attest to the content of the Intraoperative Record and any orders documented therein. Any exceptions are noted below.
[2023-06-18] MEDS: fentaNYL citrate PF 100 MCG/2 ML VIAL IV PRN ×4 (14:10→14:25)
[2023-06-18] MEDS ORDERED: HYDROmorphone INJ 0.5 MG/0.5 ML SYR IV PRN ×2 (14:23→16:00)
[2023-06-18] MEDS ORDERED: HYDROmorphone INJ 1 MG/ML SYRINGE ONE (14:29)
--- NOTE | 2023-06-18 15:26 | Anesthesiology Progress Note ---
Date of Service June 18, 2023 Anesthesia Post Procedure Vital Signs Vital Signs: Temp Pulse Pulse Resp BP Pulse Ox O2 Del Method 06/18/23 15:10 75 16 144/73 H 95 Nasal Cannula 06/18/23 15:00 36.6 C 74 16 144/67 H 97 Nasal Cannula 06/18/23 14:50 82 16 124/80 95 Room Air 06/18/23 14:40 81 20 151/87 H 98 Room Air 06/18/23 14:30 77 22 154/70 H 99 Oxymask 06/18/23 14:15 74 20 154/68 H 96 Oxymask 06/18/23 14:05 36.4 C L 84 18 153/80 H 98 Oxymask 06/18/23 09:48 36.8 C 77 20 162/77 H 20 L Room Air O2 Flow Rate 06/18/23 15:10 2 06/18/23 15:00 2 06/18/23 14:50 06/18/23 14:40 06/18/23 14:30 4 06/18/23 14:15 6 06/18/23 14:05 6 06/18/23 09:48 Pain Intensity Lower Back: Pain Intensity: 4 Transfer of Care Handoff Completed per policy Notes Mental Status: alert / awake / arousable Patient Amnestic to Procedure: Yes Nausea / Vomiting: adequately controlled Pain: adequately controlled Airway Patency, RR, SpO2: stable & adequate BP & HR: stable & adequate Hydration State: stable & adequate Anesthetic Complications: no major complications apparent
[2023-06-18] MEDS ORDERED: ONDANSETRON 4 MG OD TAB PO PRN (16:00)
[2023-06-18] MEDS ORDERED: diphenhydrAMINE Capsule 25 MG CAP PO PRN (16:00)
[2023-06-18] MEDS ORDERED: METOCLOPRAMIDE HCL INJ 5 MG/ML 2 ML VIAL IV PRN (16:00)
[2023-06-18] MEDS ORDERED: DO NOT ADMINISTER FLU VACCINE PRN (16:00)
[2023-06-18] MEDS ORDERED: ALUMINUM/MAGNESIUM SUSP 30 ML UDC PO PRN (16:00)
[2023-06-18] MEDS ORDERED: LORazepam 0.5 MG TAB PO PRN (16:00)
[2023-06-18] MEDS ORDERED: DO NOT ADMINISTER PNEUMOCOCCAL VACCINE PRN (16:00)
[2023-06-18] MEDS ORDERED: bisacodyL 10 MG SUPP PR PRN (16:00)
[2023-06-18] MEDS ORDERED: ACETAMINOPHEN 1,000 MG/100 ML VIAL IV PRN (16:00)
[2023-06-18] MEDS ORDERED: MAGNESIUM HYDROXIDE SUSP 30 ML UDC PO PRN (16:00)
[2023-06-18] MEDS ORDERED: hydrOXYzine HCl 25 MG TAB PO PRN (16:00)
[2023-06-18] MEDS ORDERED: HYDROmorphone INJ 1 MG/ML SYRINGE IV PRN (16:00)
[2023-06-18] MEDS ORDERED: LORazepam 0.5 MG in SYRINGE 0.25 ML IV PRN (16:00)
[2023-06-18] MEDS ORDERED: FAMOTIDINE 20 MG TAB PO PRN (16:00)
[2023-06-18] MEDS ORDERED: SOD PHOSPHATE/SOD BIPHOSPHATE ENEMA 132 ML BTL PR PRN (16:00)
[2023-06-18] MEDS ORDERED: HYDROCODONE/ACETAMOPHEN 5/325MG TAB PO PRN (16:00)
[2023-06-18] MEDS: ALLERGY Noted to ORDERED Medication SCH ×2 (16:12→16:13)
[2023-06-18] MEDS: SODIUM CHLORIDE 0.9% 1,000 ML IV SCH (16:14)
[2023-06-18] MEDS: traMADol HCL 50 MG TABLET PO PRN (17:35)
[2023-06-18] MEDS: ceFAZolin 2000MG 2,000 MG/15 ML SYR IV SCH (20:05)
[2023-06-18] MEDS: DOCUSATE SODIUM/SENNA 50/8.6MG TAB PO SCH (20:06)
[2023-06-18] MEDS: VALSARTAN 80 MG TAB PO SCH (20:06)
[2023-06-18] MEDS: BUTALBITAL/ACETAMIN/CAFFEINE TAB PO PRN (20:22)
[2023-06-18] MEDS ORDERED: Nursing to Pharmacy Communication SCH (22:30)
[2023-06-18] MEDS: EZETIMIBE 10 MG TAB PO SCH (23:45)
[2023-06-19] MEDS: SODIUM CHLORIDE 0.9% 1,000 ML IV SCH (01:38)
[2023-06-19] MEDS: traMADol HCL 50 MG TABLET PO PRN ×5 (01:38→20:43)
[2023-06-19] MEDS: ACETAMINOPHEN 500 MG TAB PO PRN ×2 (03:58→16:57)
[2023-06-19] MEDS: ceFAZolin 2000MG 2,000 MG/15 ML SYR IV SCH (04:20)
[2023-06-19] MEDS: POLYETHYLENE (MIRALAX) 17 GM PACK PO SCH ×3 (05:51→16:57)
[2023-06-19 06:29] LABS: Basophils # (auto) 0.03 K/uL (0.00-0.20); Basophils % (auto) 0.3 %; Eosinophils # (auto) 0.01 K/uL (0.00-0.50); Eosinophils % (auto) 0.1 %; Hematocrit (blood only) 31.2 % (37.0-47.0); Hemoglobin 10.2 g/dl (12.0-16.0); Immature Granulocytes # (auto) 0.04 K/uL (0.01-0.20); Immature Granulocytes % (auto) 0.4 %; Lymphocytes # (auto) 0.75 K/uL (1.20-3.40); Lymphocytes % (auto) 7.4 %; Mean Corpuscular Hemoglobin 30.4 pg (25.0-34.0); Mean Corpuscular Hgb Conc 32.7 g/dL (32.0-36.0); Mean Corpuscular Volume 92.9 fL (80.0-100.0); Mean Platelet Volume 9.1 fL (9.4-12.4); Monocytes # (auto) 1.04 K/uL (0.11-0.59); Monocytes % (auto) 10.2 %; Neutrophils # (auto) 8.29 K/uL (1.40-6.50); Neutrophils % (auto) 81.6 %; Platelet Count 356 K/uL (130-400); RDW Coefficient of Variation 13.8 % (11.5-14.5); Red Blood Count 3.36 M/uL (4.20-5.40); White Blood Count 10.16 K/ul (4.8-10.8)
[2023-06-19 07:05] LABS: BUN Creatinine Ratio 17.5 (10-20); Calcium 8.7 mg/dl (8.6-10.3); Creatinine Clr Calc Pharmacy 49.6 ml/min; Est GFR (African American) 80.1 ml/min; Est GFR (Non-African American) 69.1 ml/min; Potassium 4.5 mmol/L (3.5-5.1)
[2023-06-19] MEDS ORDERED: COUGH DROP (SUGAR FREE) LOZ 24 LOZ/1 BOX BUCCAL PRN (07:18)
[2023-06-19] MEDS ORDERED: EZETIMIBE 10 MG TAB PO SCH (09:00)
[2023-06-19] MEDS: VALSARTAN 80 MG TAB PO SCH ×2 (09:17→21:03)
[2023-06-19] MEDS: POTASSIUM CHLORIDE CRTAB 20 MEQ TABCR PO SCH (09:17)
[2023-06-19] MEDS: METOPROLOL SUCC 50MG EXT REL TAB PO SCH (09:17)
[2023-06-19] MEDS: PANTOprazole 40 MG TAB PO SCH (09:17)
[2023-06-19] MEDS: FUROSEMIDE 40 MG TAB PO SCH (09:17)
--- NOTE | 2023-06-19 10:41 | Orthopedic Progress Note ---
Date of Service June 19, 2023 Assessment & Plan (1) Seroma of musculoskeletal structure after musculoskeletal system procedure: Plan: Patient is status post evacuation of the seroma. She is markedly improved. Will have her work with therapy today. I will assess her progress throughout the week and hopefully discharge home possibly with her drain. Admission and Anticipated Discharge Date Admission Date: June 18, 2023 Subjective Back pain is controlled leg symptoms markedly improved Physical Exam Physical Exam: Patient is up and ambulating the halls. She is quite comfortable. Results & Data Vital Signs (Past 12 Hours) Vital Signs Temp Pulse Resp BP Pulse Ox O2 Del Method 06/19/23 07:08 36.7 C 83 18 166/94 H 97 Room Air 06/19/23 03:03 36.9 C 85 18 155/81 H 97 Room Air 06/18/23 23:06 36.6 C 73 16 132/73 97 Room Air
[2023-06-19] MEDS: EZETIMIBE 10 MG TAB PO SCH (20:43)
[2023-06-19] MEDS: DOCUSATE SODIUM/SENNA 50/8.6MG TAB PO SCH (20:43)
[2023-06-20] MEDS: traMADol HCL 50 MG TABLET PO PRN ×3 (01:26→09:49)
[2023-06-20] MEDS: BUTALBITAL/ACETAMIN/CAFFEINE TAB PO PRN (05:44)
[2023-06-20] MEDS: FUROSEMIDE 40 MG TAB PO SCH (07:34)
[2023-06-20] MEDS: ACETAMINOPHEN 500 MG TAB PO PRN (08:11)
[2023-06-20] MEDS: METOPROLOL SUCC 50MG EXT REL TAB PO SCH (08:12)
[2023-06-20] MEDS: VALSARTAN 80 MG TAB PO SCH (08:12)
[2023-06-20] MEDS: PANTOprazole 40 MG TAB PO SCH (08:12)
[2023-06-20] MEDS: POTASSIUM CHLORIDE CRTAB 20 MEQ TABCR PO SCH (08:12)
--- NOTE | 2023-06-20 10:34 | Discharge Summary ---
Date of Service June 20, 2023 Admission HPI Per Admitting Provider This is a 83-year-old female that status post lumbar decompression fusion with evidence of a postop seroma is here for I&D. Principal Diagnosis Postoperative lumbar seroma Discharge Data Allergies Allergy/AdvReac Type Severity Reaction Status Date / Time aspirin Allergy "all over Verified 06/18/23 09:54 aching in the intestinal tract" NSAIDS (Non-Steroidal Allergy "all over Verified 06/18/23 09:54 Anti-Inflamma aching in the intestinal tract" empagliflozin AdvReac Yeast Verified 06/18/23 09:54 [From [facility]] infections (per records) Procedures Performed Operation Date: 06/18/23 10:55 Actual Procedures p Open Incision and Drainage of Posterior Spine; Lumbar Epidural Space - Sebastian Henley DO Hospital Course (1) Neurogenic claudication due to lumbar spinal stenosis: Patient underwent evacuation of postoperative lumbar seroma. She tolerated procedure well return to orthopedic floor postoperatively. Postoperative course. Leg symptoms are markedly improved. She is ambulating well. YUVAL drain decreased appropriately. Subsequent discharge home. Discharge orders instructions found in chart for further review. Total Time Total Time Spent Total Time Spent (In Minutes): 20 minutes Discharge Plan Discharge Items Patient Disposition: Home - Self-Care Reason For Visit: POSTOP Discharge Diagnosis: Postoperative lumbar seroma Activity: As commented below Non-emergency contact: Primary Care Provider Call non-emergency contact if: you have any medication questions Follow-up/Referrals: Yamil Griffin M.D. [Primary Care Provider] - Diet: Regular Addtl Attending Provider Instructions: ACTIVITY RECOMMENDATIONS: SELF CARE INSTRUCTIONS AFTER THORACIC/LUMBAR FUSIONS 1. You may walk to your tolerance. It is good exercise for your legs and back. Expect some back and intermittent leg aches and pains. 2. You may perform "counter-top" level activities (make a sandwich, avtar with a project, etc.). 3. No bending or lifting of more than 10 pounds or back twisting of any nature (roll like a log when turning in bed). 4. You may ride in a car for 20-30 minutes at a time. No driving until after your first visit with your doctor. 5. Frequent changes of position and restricting sitting to 30 minutes at a time will help limit the amount of back spasms and stiffness you may experience. 6. You may discontinue the use of ambulatory aids (cane, crutches, etc.) once your strength and confidence allow. 7. You may machine design engineer the shower and let water strike your incision when you arrive home at least once daily. Do not take a tub bath, sit in a hot tub or go into a swimming pool until after your first recheck in the office. SPECIAL CARE INSTRUCTIONS: VERY IMPORTANT TO READ AND REVIEW A. Your surgical incision has been closed with a cosmetic suture under the skin that will dissolve in about 6 weeks. In 14 days, you can use a pair of clean scissors and cut the suture that is left outside of the skin at the ends of your incision. 1. The small skin tapes can be removed 7 days after surgery if they have not fallen off by that point. 2. You may keep the wound open to air as much as possible to promote healing after post-op day number 5 unless told otherwise by your doctor. 3. If you think the wound looks like it is becoming infected (redness or worsening drainage) and/or you are experiencing fever, chill or worsening back pain and muscle spasms, contact the office so that we may evaluate you as soon as possible. B. Complications are uncommon, but please contact us if you have any signs or symptoms of: 1. wound infection (fever higher than 102.5 degrees F, redness, separation of wound, drainage, or increasing pain from the incision) 2. blood clots in legs (pain, swelling, redness and warmth in legs) 3. urinary tract infection (fever higher than 102.5 degrees F, burning upon urination or increased frequency of urination) 4. nerve problems (inability to walk on your toes or heels, numbness, loss of bowel or bladder control) 5. any other symptoms that concern you C. Please call the office at if you have any concerns or questions about your operation or recovery. D. No smoking! Smoking drastically decreases the chance of a solid fusion. E. Do not take any anti-inflammatory medications (Indocin, Advil, Motrin, Aspirin, Naprosyn, etc.) as these may inhibit the chance of a solid fusion. Tylenol is okay to take for pain. MANAGING PAIN AFTER SPINAL SURGERY 1. Narcotic medication is intended for short-term use and will be provided for surgical pain. Surgical pain usually lasts for a period of 4-6 weeks. Narcotic medication includes Percocet, Vicodin, Darvocet, Tylenol #3 or Lortab. 2. Longer-term pain is more appropriately treated with non-narcotic medication such as Tylenol ES. 3. Muscle spasm is not appropriately treated with narcotics. Muscle relaxers such as Soma, Flexeril or Skelaxin can be used along with Tylenol ES. 4. Remember that we all live with some "aches and pains". This is not unusual or uncommon after an injury or as we get older. a. Back pain is expected and may include muscle spasms for 4 to 6 weeks after surgery. The pain should gradually improve. If the pain worsens for no apparent reason, please contact the office. b. Intermittent leg pain may also be experienced and should not be concerned about unless it worsens for no apparent reason. If so, please contact the office. 5. We will provide appropriate medication within the normal guidelines of their prescribed use. We will also be very cautious and aware of potential abuse and extended duration of patients' medication needs. a. Pain medications are for your comfort and to assist with sleep and rest so that the tissue can heal. They are not provided in order to return to normal activity and should not be used through the day. To do so or worsening pain at night can result from ongoing tissue damage and development of tolerance to the prescribed medicine. 6. Please allow 2-3 days to process refills. Prescriptions will not be mailed but must be picked up at the office. FOLLOW UP VISIT: Keep your scheduled follow-up appointment. Any questions, please call the office at . Pending Studies at Discharge: No Stand-Alone Forms: [facility] Medications and DC Order Prescriptions: New tramadol 50 mg tablet 50 mg PO Q6H PRN (Reason: pain, moderate) Qty: 30 0RF Continued hydrocodone-acetaminophen 5-325 mg Tablet 1 tab PO Q4H PRN (Reason: Pain) furosemide 40 mg Tablet 40 mg PO QAM metoprolol succinate 50 mg Tablet Extended Release 24 Hr 50 mg PO QAM sumatriptan succinate [Imitrex] 50 mg Tablet 25 mg PO UD PRN (Reason: migraines) Rx Instructions: take 1 tab at onset of headache; if no relief may repeat 1 tab after at least 2 hrs; max = 4 tabs/24 hr [id number]-[id number] 50-325-40 mg Tablet 1 tab PO Q4H PRN (Reason: migraines) pantoprazole 40 mg Tablet,Delayed Release (Dr/Ec) 40 mg PO QAM valsartan 40 mg Tablet 40 mg PO BID ezetimibe 10 mg Tablet 10 mg PO QAM potassium chloride 20 mEq Tablet Extended Release 20 meq PO QAM tramadol 50 mg tablet 50 mg PO Q6H PRN (Reason: pain, moderate) Qty: 30 0RF Discharge Orders: Discharge Order (Routine); Ordered 06/20/23 Ordered By: Sebastian Henley Admission Data Admit Date/Time: 06/18/23 13:54 Attending Provider: Sebastian Henley Admit Provider: Sebastian Henley Primary Care Provider: Yamil Griffin
== END 2023-06-20 13:22 | disposition home or self-care (01) | DRG 909 ==
LOC: ASU 09:19 → 3E 13:54